=== PATIENT | male | born 1990 | race Caucasian/White ===

== ENCOUNTER → 2019-11-02 13:20 | Outpatient (BNVA) | payer OTHER, SELFPAY | PROVIDERS: Family Provider Family Medicine; PCP Family Medicine; Visit Provider Nurse Practitioner Psychiatric/Mental Health | DX: F33.1 Major depressive disorder, recurrent, moderate (principal); F41.1 Generalized anxiety disorder; G47.30 Sleep apnea, unspecified | CPT/HCPCS: 99214 ==

== ENCOUNTER → 2019-12-18 10:40 | Outpatient (BNVA) | payer OTHER, SELFPAY | PROVIDERS: Family Provider Family Medicine; PCP Family Medicine; Visit Provider Nurse Practitioner Psychiatric/Mental Health | DX: F33.1 Major depressive disorder, recurrent, moderate (principal); F41.1 Generalized anxiety disorder | CPT/HCPCS: 99213 ==

== ENCOUNTER → 2020-02-12 08:21 | Outpatient (BNVA) | payer OTHER, SELFPAY | PROVIDERS: Family Provider Family Medicine; PCP Family Medicine; Visit Provider Nurse Practitioner Psychiatric/Mental Health | DX: F41.1 Generalized anxiety disorder (principal); F32.4 Major depressive disorder, single episode, in partial remission; F43.12 Post-traumatic stress disorder, chronic | CPT/HCPCS: 99212 ==

== ENCOUNTER 2020-03-16 19:35 | Emergency (ER) | payer OTHER, SELFPAY ==
--- NOTE | 2020-03-16 19:37 | XRR_ITS ---
PROCEDURE INFORMATION: Exam: XR Chest, 1 View Exam date and time: 03/16/2020 7:38 PM Age: 29 years old Clinical indication: Dyspnea; Additional info: SOB TECHNIQUE: Imaging protocol: XR of the chest Views: 1 view. COMPARISON: [facility] Chest 2 views 08/22/2018 2:03 PM FINDINGS: Lungs: Lungs are clear bilaterally. Pleural space: No pleural effusion. No pneumothorax. Heart/Mediastinum: The cardiac silhouette and mediastinal contours are unremarkable. Bones/joints: Unremarkable for age. XR/XR chest 1V portable [id number] IMPRESSION: No acute cardiopulmonary process.
[2020-03-16 19:46] VITALS: BP 134/90; PULSE 71; RESP 16; TEMP 36.7; O2SAT 100; BMI 28.7
--- NOTE | 2020-03-16 20:02 | W.ED.SOB ---
HPI - SOB/Dyspnea General: Chief Complaint: Shortness of Breath/Dyspnea Stated Complaint: chest pressure, sob Time Seen by Provider: 03/16/20 19:58 Source: patient Mode of arrival: ambulatory Limitations: no limitations History of Present Illness: HPI Narrative: 29-year-old male states he has had shortness of breath along with chest pain over the last day. Patient states that he went in a biohazard cooler multiple times today and started feeling short of breath and having pain with deep breaths after that. He denies any worsening or improving factors. He denies any fever or cough. MD elicited complaint: shortness of breath Associated symptoms: Reports chest pain; Deny abdominal pain, fever(s), nausea or vomiting Review of Systems Const: Denies: fever(s), chills, body aches or change in appetite Eyes: Denies: blurry vision or eye discomfort ENMT: Denies: throat pain or dental pain Card: Reports: chest pain Resp: Reports: dyspnea GI: Denies: abdominal pain, nausea, vomiting or diarrhea : Denies: dysuria Musc: Denies: neck pain or back pain Skin/Breast: Denies: rash Neuro: Denies: headache(s) Psych: Denies: depression Andrew/Lymph: Denies: easy bruising All/Imm: Denies: urticaria PFSH ED PFSH: Medical History Major depressive disorder in partial remission See subjective information below. Social History Smoking and tobacco status: never smoked Quit status (tobacco): considering quitting Second hand smoke exposure: Yes Physical Exam Const: COMMON NORMALS: no acute distress, patient oriented x3 and healthy appearing HENMT: COMMON NORMALS: normocephalic and atraumatic HEAD & SCALP: normocephalic and atraumatic Eye: COMMON NORMALS: Equal, round and reactive pupils present and EOMs intact bilaterally PUPIL: Yes Equal, round and reactive pupils present Neck/C-Spine: COMMON NORMALS: full ROM and supple Chest: COMMONS NORMALS: normal inspection of the chest and normal palpation of entire chest wall Resp: COMMON NORMALS: normal respiratory effort, No retractions, No use of accessory muscles and clear to auscultation bilaterally AUSCULTATION: clear to auscultation bilaterally Cardio: COMMON NORMALS: regular rate, regular rhythm and No murmurs present (Cardio) RATE: regular rate RHYTHM: regular rhythm GI: COMMON NORMALS: Normal to inspection, nondistended, normoactive bowel sounds present, Soft to palpation, non-tender and no masses PALPATION: Yes Soft to palpation Extremity: COMMON NORMALS: normal to inspection and full ROM Neuro: COMMON NORMALS: patient oriented x3, moves all extremities and no focal motor deficits Psych: COMMON NORMALS: mental status grossly normal, Normal thought process present and cooperative THOUGHT PROCESS: Normal thought process present Skin: COMMON NORMALS: no rashes or lesions noted and no wounds GENERAL SKIN EXAM: no rashes or lesions noted Course Vital Signs: Vital signs: Vital Signs Temperature 98.1 F 03/16/20 19:46 Pulse Rate 87 03/16/20 20:17 Respiratory Rate 20 H 03/16/20 20:14 Blood Pressure 134/90 03/16/20 19:46 Pulse Oximetry 95 03/16/20 20:14 MDM - SOB/Dyspnea MDM Narrative: Medical decision making narrative: Justice presents for shortness of breath that I believe is likely that he is having a reaction to. He feels much improved here after albuterol patient given Decadron as well. Will prescribe albuterol for home. X-ray shows no signs of pneumonia and EKG and troponin are normal. Patient has no signs of pulmonary embolism. He is to follow-up with his primary care doctor in 3 to 5 days and return if worsening. Lab Data: Labs: Lab Results 03/16/20 03/16/20 03/16/20 Range/Units 20:18 20:18 20:18 WBC 9.3 (4.0-10.0) 10^3/ uL RBC 4.43 (4.1-5.3) 10^6/u L Hgb 14.7 (11.7-16.6) g/dL Hct 42.9 (42.0-52.0) % MCV 96.8 H (80-94) fL MCH 33.2 (28.0-34.0) pg MCHC 34.3 (30.0-36.0) g/dL RDW 12.6 (12.1-15.1) % Plt Count 257 (130-400) 10^3/c mm MPV 10.5 H (7.4-10.4) fL Neut % (Auto) 48.1 % Lymph % (Auto) 35.6 % Gibson % (Auto) 9.5 % Eos % (Auto) 6.4 % Baso % (Auto) 0.3 % Neut # (Auto) 4.5 (1.8-7.7) 10^3/u L Lymph # (Auto) 3.3 (0.8-4.8) 10^3/u L Gibson # (Auto) 0.9 (0.2-0.9) 10^3/u L Eos # (Auto) 0.6 (0.0-0.8) 10^3/u L Baso # (Auto) 0.0 (0.0-0.1) 10^3/u L Nucleated RBC % (a uto) 0 % Nucleated RBCs # 0.0 /100WBC Sodium 138 (136-145) mmol/L Potassium 3.5 (3.5-5.1) mmol/L Chloride 103 (98-107) mmol/L Carbon Dioxide 22 (22-29) mmol/L Anion Gap 16.5 (5-19) BUN 19 (6-20) mg/dL Creatinine 1.1 (0.7-1.2) mg/dL GFR Calculation 78.6 L (90-130) mL/min Glucose 152 H (65-115) mg/dL Calculated Osmolal ity 285 (285-295) mOsm/k g Calcium 9.4 (8.5-10.5) mg/dL Total Bilirubin 0.2 (0.15-1.2) mg/dL AST 21 (0-40) U/L ALT 20 (0-41) U/L Alkaline Phosphata se 79 (40-130) IU/L Troponin T Baselin e 6 (0-15) ng/L Total Protein 7.5 (6.6-8.7) g/dL Albumin 4.6 (3.5-5.2) g/dL Globulin 2.9 (1.3-4.6) g/dL Imaging Data^: CXR: Radiologist's impression: [address] [address] XRay Report Signed Patient: Justice Roche Unit #: [id number] : 1990 Age/Sex: 29 / M ADM Date: 03/16/20 Loc: ER Room/Bed: Attending Dr: Ordering Provider/Ordering MD: Brittaney Morris MD Date of Service: 03/16/20 Procedure(s): XR chest 1V portable [id number] Accession Number(s): [id number] Report Number: [id number] PROCEDURE INFORMATION: Exam: XR Chest, 1 View Exam date and time: 03/16/2020 7:38 PM Age: 29 years old Clinical indication: Dyspnea; Additional info: SOB TECHNIQUE: Imaging protocol: XR of the chest Views: 1 view. COMPARISON: [facility] Chest 2 views 08/22/2018 2:03 PM FINDINGS: Lungs: Lungs are clear bilaterally. Pleural space: No pleural effusion. No pneumothorax. Heart/Mediastinum: The cardiac silhouette and mediastinal contours are unremarkable. Bones/joints: Unremarkable for age. XR/XR chest 1V portable [id number] IMPRESSION: No acute cardiopulmonary process. Discharge Plan Discharge Patient Disposition: Home, Self-Care Clinical Impression: Dyspnea Qualifiers: Dyspnea type: shortness of breath Qualified Code(s): R06.02 - Shortness of breath Condition: Stable Prescriptions: New albuterol sulfate 90 mcg/actuation HFA aerosol inhaler 2 inh INHALATION Q6H PRN (Reason: shortness of breath or wheezing) Qty: 8 RF: 0 No Action escitalopram oxalate 10 mg tablet 10 mg PO QDAY Qty: 30 RF: 2 rosuvastatin [Crestor] 20 mg tablet 20 mg PO DAILY RF: 0 trazodone 100 mg tablet 100 mg PO QDAY Qty: 30 RF: 1 Discharge Orders: Discharge Order (Routine); Ordered 03/16/20 Ordered By: Brittaney Morris Referrals: Richar Otero MD [Primary Care Provider] - 1-3 days Discharge Diet: Advance as tolerated Discharge Activity: Resume usual activity Patient Instructions: Dyspnea (ED) Coding Level of Care Code ED Supplemental Nurse for Chg Fwd Exam Comprehensive
[2020-03-16 20:14] VITALS: PULSE 87; RESP 20; O2SAT 95
[2020-03-16] MEDS: ipratropium-albuterol 3 mL Neb INHALATION (20:14)
[2020-03-16 20:17] VITALS: PULSE 87
[2020-03-16 20:21] LABS: Basophils % 0.3 %; Eosinophils # 0.6 10^3/uL (0.0-0.8); Eosinophils % 6.4 %; Hematocrit 42.9 % (42.0-52.0); Hemoglobin 14.7 g/dL (11.7-16.6); Lymphocytes # 3.3 10^3/uL (0.8-4.8); Lymphocytes % 35.6 %; Mean Corpuscular HGB Conc 34.3 g/dL (30.0-36.0); Mean Corpuscular Hemoglobin 33.2 pg (28.0-34.0); Mean Corpuscular Volume 96.8 fL (80-94); Mean Platelet Volume 10.5 fL (7.4-10.4); Monocytes # 0.9 10^3/uL (0.2-0.9); Monocytes % 9.5 %; Neutrophils # 4.5 10^3/uL (1.8-7.7); Neutrophils % 48.1 %; Nucleated Red Blood Cells % 0 %; Platelet Count 257 10^3/cmm (130-400); Red Blood Count 4.43 10^6/uL (4.1-5.3); Red Cell Distribution Width 12.6 % (12.1-15.1); White Blood Count 9.3 10^3/uL (4.0-10.0)
[2020-03-16 20:36] LABS: Alanine Aminotransferase 20 U/L (0-41); Albumin Level 4.6 g/dL (3.5-5.2); Alkaline Phosphatase 79 IU/L (40-130); Anion Gap 16.5 (5-19); Aspartate Amino Transferase 21 U/L (0-40); Blood Urea Nitrogen 19 mg/dL (6-20); Calcium 9.4 mg/dL (8.5-10.5); Carbon Dioxide 22 mmol/L (22-29); Chloride 103 mmol/L (98-107); Globulin 2.9 g/dL (1.3-4.6); Glomerular Filtration Rate 78.6 mL/min (90-130); Glucose 152 mg/dL (65-115); Osmolality Calculated 285 mOsm/kg (285-295); Potassium 3.5 mmol/L (3.5-5.1); Sodium 138 mmol/L (136-145); Total Bilirubin 0.2 mg/dL (0.15-1.2); Total Protein 7.5 g/dL (6.6-8.7)
[2020-03-16 20:37] LABS: Troponin(5th) Baseline 6 ng/L (0-15)
[2020-03-16] MEDS: dexamethasone 10 mg/mL INJ IVP (20:47)
[2020-03-16 21:36] VITALS: BP 117/70; PULSE 89; RESP 18; O2SAT 95
[2020-03-16 21:57] VITALS: BP 111/63; PULSE 97; RESP 19; O2SAT 94
== END 2020-03-16 21:57 | disposition home or self-care (01) ==
PROVIDERS: Emergency Provider Emergency Medicine; PCP Family Medicine
DX: R06.02 Shortness of breath (principal)
CPT/HCPCS: 12345; 71045; 80053; 84484; 85025; 94640; 96374; 99281; 99284; J1100; J7611

== ENCOUNTER → 2020-05-13 08:42 | Outpatient (BNVA) | payer OTHER, SELFPAY | PROVIDERS: PCP Family Medicine; Visit Provider Nurse Practitioner Psychiatric/Mental Health | DX: F32.4 Major depressive disorder, single episode, in partial remission (principal); F41.1 Generalized anxiety disorder | CPT/HCPCS: 99212 ==

== ENCOUNTER → 2020-07-01 08:16 | Outpatient (BNVA) | payer OTHER, SELFPAY | PROVIDERS: PCP Family Medicine; Visit Provider Nurse Practitioner Psychiatric/Mental Health | DX: F32.4 Major depressive disorder, single episode, in partial remission (principal); F41.1 Generalized anxiety disorder | CPT/HCPCS: 99212 ==

== ENCOUNTER → 2020-11-04 10:11 | Outpatient (BNVA) | payer OTHER, SELFPAY | PROVIDERS: PCP Family Medicine; Visit Provider Nurse Practitioner Psychiatric/Mental Health | DX: F32.4 Major depressive disorder, single episode, in partial remission (principal); F41.1 Generalized anxiety disorder | CPT/HCPCS: 99213 ==

== ENCOUNTER 2021-01-16 07:32 | Emergency (ER) | payer OTHER, SELFPAY ==
[2021-01-16 07:43] VITALS: BP 132/94; PULSE 71; RESP 16; TEMP 36.6; O2SAT 96; BMI 29.9
--- NOTE | 2021-01-16 08:09 | W.ED.EYEPROB ---
HPI - Eye Problem General: Chief complaint: Eye Problems Stated complaint: Lt eye irratated Time Seen by Provider: 01/16/21 07:37 History of Present Illness: HPI Narrative: 30-year-old male presents emergency room complaining of left eye discomfort and watering it began when he woke up this morning he usually does wear contacts he wears the overnight he remove the contact and still is uncomfortable. It is watering excessively is moderately red. Is not had any purulent drainage no foreign bodies that he knows of or has thought he might have gotten. chief complaint: eye pain and eye redness Onset (ago): hour(s) Onset description: sudden Duration: constant Location: left eye Eye Symptoms: burning, redness and foreign body sensation Place: home Mechanism: none Severity: moderate If Pain, Quality: sharp Associated symptoms: Denies cough, fever(s), headache(s), nausea, neck pain, numbness, rhinorrhea, short of breath, vomiting or weakness Treatments Prior to Arrival: none Review of Systems Const: Denies: fever(s) ENMT: Denies: throat pain, ear or mastoid pain, nasal discharge or nasal congestion Card: Denies: chest pain, edema, dyspnea on exertion or orthopnea Resp: Denies: dyspnea, productive cough or non-productive cough GI: Denies: nausea or vomiting : Denies: flank pain, dysuria, urinary frequency or urinary urgency Musc: Denies: neck pain Skin/Breast: Denies: rash or pruritus Neuro: Denies: headache(s) PFSH ED PFSH: Medical History Major depressive disorder in partial remission Social History Smoking and tobacco status: current every day smoker smokeless tobacco Smokeless tobacco user: chewing tobacco Smokeless tobacco details: 0.5 can per day Quit status (tobacco): considering quitting Second hand smoke exposure: Yes Physical Exam Const: COMMON NORMALS: no acute distress GENERAL APPEARANCE: cooperative and comfortable ORIENTATION/CONSCIOUSNESS: Yes awake, Yes oriented to person, Yes oriented to place and Yes oriented to time HENMT: COMMON NORMALS: normocephalic, atraumatic and hearing grossly normal bilaterally HEAD & SCALP: normocephalic and atraumatic Eye: OTHER: Left eye anesthetized with tetracaine good relief of discomfort. Eyelids everted no foreign bodies noted fluorescein staining of the cornea under black light no evidence of corneal abrasions some mild increased uptake at the edges of the cornea and the sclera. Neck/C-Spine: COMMON NORMALS: full ROM, no lymphadenopathy, supple and no JVD Lymph: LYMPHATIC: no lymphadenopathy noted and no lymphedema noted Resp: COMMON NORMALS: normal respiratory effort, No retractions, No use of accessory muscles and clear to auscultation bilaterally AUSCULTATION: clear to auscultation bilaterally Cardio: COMMON NORMALS: no JVD, regular rate, regular rhythm and No murmurs present (Cardio) RATE: regular rate RHYTHM: regular rhythm GI: COMMON NORMALS: Soft to palpation and No hepatosplenomegaly present AUSCULTATION: Yes normoactive bowel sounds PALPATION: Yes Soft to palpation, No Tenderness to palpation present (GI), No Guarding due to palpation present (GI) and Yes No hepatosplenomegaly present Extremity: COMMON NORMALS: normal to inspection, capillary refill normal, no clubbing, cyanosis or edema, no calf tenderness and no pedal edema Neuro: SENSORIUM/ORIENTATION: Yes oriented to person, Yes oriented to place and Yes oriented to time Skin: COMMON NORMALS: no rashes or lesions noted GENERAL SKIN EXAM: no rashes or lesions noted Course Vital Signs: Vital signs: Vital Signs Temperature 97.8 F 01/16/21 07:43 Pulse Rate 70 01/16/21 10:21 Respiratory Rate 18 01/16/21 10:21 Blood Pressure 131/83 01/16/21 10:21 Pulse Oximetry 96 01/16/21 10:21 MDM - Eye Problem MDM Narrative: Medical decision making narrative: Suspect he had a mild corneal abrasion is already begun to heal overnight he woke up with his contacts in. 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 Discharge Plan Discharge Clinical Impression: Corneal abrasion Condition: Stable Prescriptions: New TobraDex 0.3-0.1 % drops,suspension 1 drp ophthalmic (eye) 6XD 5 Days Qty: 10 RF: 0 No Action buspirone 10 mg tablet 10 mg PO BID Qty: 60 RF: 2 escitalopram oxalate 20 mg tablet 20 mg PO DAILY Qty: 30 RF: 2 rosuvastatin [Crestor] 20 mg tablet 20 mg PO DAILY RF: 0 lisinopril 10 mg tablet 10 mg PO DAILY RF: 0 erythromycin 5 mg/gram (0.5 %) ointment 0.5 inch ophthalmic (eye) QID 7 Days Qty: 3.5 RF: 0 albuterol sulfate 90 mcg/actuation HFA aerosol inhaler 2 inh INHALATION Q6H PRN (Reason: shortness of breath or wheezing) Qty: 8 RF: 0 Discharge Orders: Discharge ED (Routine); Ordered 01/16/21 Ordered By: Shane Franco Referrals: Richar Otero MD [Primary Care Provider] - Patient Instructions: Opioid Safety Activity Restrictions/Additional Instructions: If not improving follow-up with your eye doctor. Coding Level of Care Code ED [place] Converter Operator for Chg Fwd Exam Comprehensive
[2021-01-16] MEDS: cyclopentolate 1% Op Soln 2 mL Btl 1 DROP EYE-LEFT (10:16)
[2021-01-16 10:21] VITALS: BP 131/83; PULSE 70; RESP 18; O2SAT 96
== END 2021-01-16 10:21 ==
PROVIDERS: Emergency Provider Family Medicine; PCP Family Medicine
DX: S05.02XA Injury of conjunctiva and corneal abrasion without foreign body, left eye, initial encounter (principal); X58.XXXA Exposure to other specified factors, initial encounter; F17.220 Nicotine dependence, chewing tobacco, uncomplicated
CPT/HCPCS: 99282

== ENCOUNTER → 2021-01-27 08:25 | Outpatient (BNVA) | payer OTHER, SELFPAY | PROVIDERS: PCP Family Medicine; Visit Provider Nurse Practitioner Psychiatric/Mental Health | DX: F32.4 Major depressive disorder, single episode, in partial remission (principal); F41.1 Generalized anxiety disorder | CPT/HCPCS: 99213 ==

== ENCOUNTER 2021-02-14 10:56 | Observation (INO) | payer OTHER, SELFPAY ==
[2021-02-14] VITALS (11 sets, daily range): BP systolic 98–155; BP diastolic 63–95; PULSE 96–130; RESP 18–26; TEMP 36.7–37.6; O2SAT 90–96; BMI 30.6
--- NOTE | 2021-02-14 11:10 | XRR_ITS ---
PROCEDURE INFORMATION: Exam: XR Chest Exam date and time: 02/14/2021 11:46 AM Age: 30 years old Clinical indication: Shortness of breath; Additional info: Reduced breath sounds TECHNIQUE: Imaging protocol: XR of the chest. Views: 1 view. COMPARISON: [facility] XR chest 1V portable [id number] 03/16/2020 8:13 PM FINDINGS: Lungs: Unremarkable. No consolidation. Pleural spaces: Unremarkable. No pleural effusion. No pneumothorax. Heart/Mediastinum: Unremarkable. No cardiomegaly. Bones/joints: Unremarkable. XR/XR chest 1V portable [id number] IMPRESSION: No acute findings.
--- NOTE | 2021-02-14 11:12 | ECG_ITS ---
[facility] Test Date: 2021-02-14 Pat Name: Justice Roche Department: Room: Gender: Male Paraoptometric: : 1990 Requested By: Raffi Polo Order Number: [id number] Patterson MD: Matilde Segal M.D. Measurements Intervals [place] Rate: 111 P: 25 MI: 128 QRS: 13 QRSD: 91 T: 57 QT: 299 QTc: 407 Interpretive Statements SINUS TACHYCARDIA NONSPECIFIC T-WAVE ABNORMALITY ABNORMAL RHYTHM ECG Compared to ECG 09/08/2018 10:19:02 T-wave abnormality now present Sinus bradycardia no longer present Sinus arrhythmia no longer present Electronically Signed On 02-16-2021 12:12:48 CDT by Matilde Segal M.D. [id number]
--- NOTE | 2021-02-14 11:17 | W.ED.WEAKNES ---
HPI - Weakness General: Chief complaint: Weakness Stated complaint: SHAKING Time Seen by Provider: 02/14/21 11:01 History of Present Illness: HPI Narrative: Patient is a 30-year-old male with past medical history anxiety and depression. He comes to the ER complaining that he cannot stop shaking. He is shaking his extremities and entire body. He says he is feeling nauseous and just vomited prior to being seen. He says he does have anxiety. 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 He says his knees began to ache and then he started to feel slightly shaky and then his back began to ache and head began to ache. He says he has these episodes sporadically but has had 2 in the last month and they last a couple hours until he is able to take an ibuprofen and they go way. Complaint: generalized weakness Onset (ago): minute(s) (30) Duration: constant Location: generalized Severity: moderate Exacerbating factors: none Associated symptoms: Reports nausea and vomiting; Denies chest pain or headache(s) Review of Systems General: Reports: 10 or more systems reviewed and unremarkable except in HPI and below Const: Denies: fatigue Eyes: Denies: change in vision, blurry vision or eye redness ENMT: Denies: throat pain, swelling of lips/tongue, ear or mastoid pain or nasal congestion Card: Denies: chest pain Resp: Denies: dyspnea, productive cough or non-productive cough GI: Reports: nausea and vomiting : Denies: flank pain, urinary frequency or urinary urgency Musc: Denies: neck pain, back pain, extremity pain, joint pain, joint redness, limited range of motion or muscle weakness Skin/Breast: Denies: rash, pruritus, erythema, skin pain or skin tenderness Neuro: Denies: headache(s) Psych: Denies: anxiety or depression Endo: Denies: polyuria All/Imm: Denies: urticaria, throat swelling or tongue swelling 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 Surgical History No pertinent past surgical history Family History Other CAD (coronary artery disease) Diabetes Hypertension Social History Smoking and tobacco status: current every day smoker smokeless tobacco Smokeless tobacco user: chewing tobacco Smokeless tobacco details: 0.5 can per day Quit status (tobacco): considering quitting Second hand smoke exposure: Yes Physical Exam Const: COMMON NORMALS: no acute distress, average body habitus, patient oriented x3, no limitations, alert and well nourished GENERAL APPEARANCE: cooperative and anxious ORIENTATION/CONSCIOUSNESS: Yes awake, Yes oriented to person, Yes oriented to place and Yes oriented to time OTHER: shaking hands and arms HENMT: COMMON NORMALS: normocephalic, external ears normal and Normal external nose present HEAD & SCALP: normal to inspection and normocephalic NOSE: Normal external nose present EXTERNAL EAR: Yes external ears normal MOUTH: Normal oral and palatal mucosa present THROAT: posterior oropharynx normal Eye: COMMON NORMALS: Equal, round and reactive pupils present and EOMs intact bilaterally GENERAL EYE: appearance normal, both eyes and all related structures PUPIL: Yes Equal, round and reactive pupils present Neck/C-Spine: COMMON NORMALS: full ROM, no lymphadenopathy, no meningeal signs and no JVD GENERAL: Yes normal visual inspection Lymph: LYMPHATIC: no lymphadenopathy noted Chest: COMMONS NORMALS: normal inspection of the chest and normal palpation of entire chest wall Resp: COMMON NORMALS: normal respiratory effort, No retractions, No use of accessory muscles, clear to auscultation bilaterally and percussion normal EFFORT & INSPECTION: Yes able to speak in complete sentences AUSCULTATION: clear to auscultation bilaterally PERCUSSION: percussion normal Cardio: COMMON NORMALS: no JVD, regular rate, regular rhythm, S1 normal heart sound present, S2 normal heart sound present and Peripheral pulses 2+ throughout RATE: regular rate RHYTHM: regular rhythm HEART SOUNDS: S1 normal heart sound present and S2 normal heart sound present PERIPHERAL PULSES: Peripheral pulses 2+ throughout GI: COMMON NORMALS: Normal to inspection, nondistended, normoactive bowel sounds present, Soft to palpation, non-tender and no masses INSPECTION: Yes normal to inspection PALPATION: Yes Soft to palpation : COMMON NORMALS: Yes no CVA tenderness BLADDER/KIDNEY EXAM: Yes no CVA tenderness Back/Pelvis: COMMON NORMALS: no CVA tenderness, thoracic and lumbar spine normal to inspection, no thoracic nor lumbar tenderness and thoraco-lumbar ROM normal Extremity: COMMON NORMALS: normal to inspection, full ROM, capillary refill normal, no joint enlargement and no pedal edema GENERAL: Yes normal exam except as noted Neuro: COMMON NORMALS: patient oriented x3, CN's II-XII intact bilaterally, moves all extremities, no focal motor deficits, no sensory deficits noted and gait normal SENSORIUM/ORIENTATION: Yes alert, Yes oriented to person, Yes oriented to place and Yes oriented to time MENINGEAL SIGNS: Yes no meningeal signs Psych: COMMON NORMALS: mental status grossly normal, cooperative, normal affect and speech normal SPEECH: Yes normal speech MOOD & AFFECT: Yes anxious Skin: COMMON NORMALS: no rashes or lesions noted GENERAL SKIN EXAM: no rashes or lesions noted Procedures Lumbar Puncture Time Out Performed: Yes Patient Position: right lateral decubitus Skin Prep: Povidone-Iodine 1% Local Anesthetic: lidocaine 1% Amount of anesthesia used (mL): 5 Spinal Needle Gauge: 24G Interspace Used: L3-L4 Fluid Initially Obtained: clear Complications: none Additional Comments: Clear tap. Tolerated well. Course Vital Signs: Vital signs: Vital Signs Temperature 99.6 F 02/14/21 10:59 Pulse Rate 130 H 02/14/21 15:10 Respiratory Rate 18 02/14/21 15:10 Blood Pressure 118/81 02/14/21 15:10 Pulse Oximetry 95 02/14/21 15:10 MDM - Weakness MDM Narrative: Medical decision making narrative: The patient continued to complain of headache, neck pain and is tachycardic as well as having elevated lactic acid. He also has a history of anxiety so it is difficult to tell if these are symptoms of his anxiety because he was also shaking severely or possibly a meningitis. I initially told him that these were possibly signs and symptoms of meningitis and that we should do a lumbar puncture. I explained the risks and benefits to him and he declined the test at that time. I went ahead and empirically treated with ceftriaxone 2 g IV and discussed with the hospitalist Dr. Thayer who again recommended the lumbar puncture to him and he accepted the test. I discussed risks of pain, infection, nerve damage, bleeding, CSF leak, chronic low back pain, chronic nerve damage pain. He understood and accepts the risks of this test and proceeded to go forward with the test and signed consent papers. The lumbar puncture itself was uncomplicated and clear fluid resulted. He will be admitted to [facility] for further monitoring. Lab Data: Labs: Lab Results 02/14/21 02/14/21 02/14/21 Range/Units 11:41 11:41 11:41 WBC 9.2 (4.0-10.0) 10^3/ uL RBC 4.64 (4.1-5.3) 10^6/u L Hgb 15.4 (11.7-16.6) g/dL Hct 46.0 (42.0-52.0) % MCV 99.1 H (80-94) fL MCH 33.2 (28.0-34.0) pg MCHC 33.5 (30.0-36.0) g/dL RDW 12.6 (12.1-15.1) % Plt Count 210 (130-400) 10^3/c mm MPV 10.9 H (7.4-10.4) fL Neut % (Auto) 84.2 % Lymph % (Auto) 12.3 % Ellsworth % (Auto) 1.1 % Eos % (Auto) 1.8 % Baso % (Auto) 0.3 % Neut # (Auto) 7.74 H (1.8-7.7) 10^3/u L Lymph # (Auto) 1.1 (0.8-4.8) 10^3/u L Ellsworth # (Auto) 0.1 L (0.2-0.9) 10^3/u L Eos # (Auto) 0.2 (0.0-0.8) 10^3/u L Baso # (Auto) 0.0 (0.0-0.1) 10^3/u L Nucleated RBC % (a uto) 0 % Nucleated RBCs # 0.0 /100WBC Sodium 139 (136-145) mmol/L Potassium 4.7 (3.5-5.1) mmol/L Chloride 104 (98-107) mmol/L Carbon Dioxide 23 (22-29) mmol/L Anion Gap 16.7 (5-19) BUN 20 (6-20) mg/dL Creatinine 1.1 (0.7-1.2) mg/dL GFR Calculation 78.1 L (90-130) mL/min Glucose 74 (65-115) mg/dL Calculated Osmolal ity 289 (285-295) mOsm/k g Lactic Acid 3.4 H (0.5-2.2) mmol/L Calcium 8.9 (8.5-10.5) mg/dL Total Bilirubin 0.4 (0.15-1.2) mg/dL AST 23 (0-40) U/L ALT 22 (0-41) U/L Alkaline Phosphata se 93 (40-130) IU/L C-Reactive Protein 1.5 (0.0-4.9) mg/L Total Protein 7.9 (6.6-8.7) g/dL Albumin 4.7 (3.5-5.2) g/dL Globulin 3.2 (1.3-4.6) g/dL TSH (0.27-4.20) uIU/ mL Urine Color (Yellow) Urine Appearance (CLEAR) Urine pH (5-7) Ur Specific Gravit y (1.005-1.030) Urine Protein (Negative) Urine Glucose (UA) (Normal) Urine Ketones (Negative) Urine Blood (Negative) Urine Nitrate (Negative) Urine Bilirubin (Negative) Urine Urobilinogen (Negative) mg/dL Ur Leukocyte Marga ase (Negative) Urine Opiates Scre en (Negative) ng/mL Ur Barbiturates Sc reen (Negative) ng/mL Ur Phencyclidine S crn (Negative) ng/mL Ur Amphetamines Sc reen (Negative) ng/mL U Benzodiazepines Scrn (Negative) ng/mL Urine Cocaine Scre en (Negative) ng/mL U Marijuana (THC) Screen (Negative) ng/mL SARS-CoV-2 Ag (Rap id) (Negative) 02/14/21 02/14/21 02/14/21 Range/Units 11:41 11:41 11:41 WBC (4.0-10.0) 10^3/ uL RBC (4.1-5.3) 10^6/u L Hgb (11.7-16.6) g/dL Hct (42.0-52.0) % MCV (80-94) fL MCH (28.0-34.0) pg MCHC (30.0-36.0) g/dL RDW (12.1-15.1) % Plt Count (130-400) 10^3/c mm MPV (7.4-10.4) fL Neut % (Auto) % Lymph % (Auto) % Ellsworth % (Auto) % Eos % (Auto) % Baso % (Auto) % Neut # (Auto) (1.8-7.7) 10^3/u L Lymph # (Auto) (0.8-4.8) 10^3/u L Ellsworth # (Auto) (0.2-0.9) 10^3/u L Eos # (Auto) (0.0-0.8) 10^3/u L Baso # (Auto) (0.0-0.1) 10^3/u L Nucleated RBC % (a uto) % Nucleated RBCs # /100WBC Sodium (136-145) mmol/L Potassium (3.5-5.1) mmol/L Chloride (98-107) mmol/L Carbon Dioxide (22-29) mmol/L Anion Gap (5-19) BUN (6-20) mg/dL Creatinine (0.7-1.2) mg/dL GFR Calculation (90-130) mL/min Glucose (65-115) mg/dL Calculated Osmolal ity (285-295) mOsm/k g Lactic Acid (0.5-2.2) mmol/L Calcium (8.5-10.5) mg/dL Total Bilirubin (0.15-1.2) mg/dL AST (0-40) U/L ALT (0-41) U/L Alkaline Phosphata se (40-130) IU/L C-Reactive Protein (0.0-4.9) mg/L Total Protein (6.6-8.7) g/dL Albumin (3.5-5.2) g/dL Globulin (1.3-4.6) g/dL TSH 1.16 (0.27-4.20) uIU/ mL Urine Color Yellow (Yellow) Urine Appearance Clear (CLEAR) Urine pH 5 (5-7) Ur Specific Gravit y 1.015 (1.005-1.030) Urine Protein Neg (Negative) Urine Glucose (UA) Norm (Normal) Urine Ketones Negative (Negative) Urine Blood Neg (Negative) Urine Nitrate Negative (Negative) Urine Bilirubin Neg (Negative) Urine Urobilinogen 1 H (Negative) mg/dL Ur Leukocyte Marga ase Negative (Negative) Urine Opiates Scre en Negative (Negative) ng/mL Ur Barbiturates Sc reen Negative (Negative) ng/mL Ur Phencyclidine S crn Negative (Negative) ng/mL Ur Amphetamines Sc reen Negative (Negative) ng/mL U Benzodiazepines Scrn Negative (Negative) ng/mL Urine Cocaine Scre en Negative (Negative) ng/mL U Marijuana (THC) Screen Negative (Negative) ng/mL SARS-CoV-2 Ag (Rap id) (Negative) 02/14/21 Range/Units 14:30 WBC (4.0-10.0) 10^3/ uL RBC (4.1-5.3) 10^6/u L Hgb (11.7-16.6) g/dL Hct (42.0-52.0) % MCV (80-94) fL MCH (28.0-34.0) pg MCHC (30.0-36.0) g/dL RDW (12.1-15.1) % Plt Count (130-400) 10^3/c mm MPV (7.4-10.4) fL Neut % (Auto) % Lymph % (Auto) % Ellsworth % (Auto) % Eos % (Auto) % Baso % (Auto) % Neut # (Auto) (1.8-7.7) 10^3/u L Lymph # (Auto) (0.8-4.8) 10^3/u L Ellsworth # (Auto) (0.2-0.9) 10^3/u L Eos # (Auto) (0.0-0.8) 10^3/u L Baso # (Auto) (0.0-0.1) 10^3/u L Nucleated RBC % (a uto) % Nucleated RBCs # /100WBC Sodium (136-145) mmol/L Potassium (3.5-5.1) mmol/L Chloride (98-107) mmol/L Carbon Dioxide (22-29) mmol/L Anion Gap (5-19) BUN (6-20) mg/dL Creatinine (0.7-1.2) mg/dL GFR Calculation (90-130) mL/min Glucose (65-115) mg/dL Calculated Osmolal ity (285-295) mOsm/k g Lactic Acid (0.5-2.2) mmol/L Calcium (8.5-10.5) mg/dL Total Bilirubin (0.15-1.2) mg/dL AST (0-40) U/L ALT (0-41) U/L Alkaline Phosphata se (40-130) IU/L C-Reactive Protein (0.0-4.9) mg/L Total Protein (6.6-8.7) g/dL Albumin (3.5-5.2) g/dL Globulin (1.3-4.6) g/dL TSH (0.27-4.20) uIU/ mL Urine Color (Yellow) Urine Appearance (CLEAR) Urine pH (5-7) Ur Specific Gravit y (1.005-1.030) Urine Protein (Negative) Urine Glucose (UA) (Normal) Urine Ketones (Negative) Urine Blood (Negative) Urine Nitrate (Negative) Urine Bilirubin (Negative) Urine Urobilinogen (Negative) mg/dL Ur Leukocyte Marga ase (Negative) Urine Opiates Scre en (Negative) ng/mL Ur Barbiturates Sc reen (Negative) ng/mL Ur Phencyclidine S crn (Negative) ng/mL Ur Amphetamines Sc reen (Negative) ng/mL U Benzodiazepines Scrn (Negative) ng/mL Urine Cocaine Scre en (Negative) ng/mL U Marijuana (THC) Screen (Negative) ng/mL SARS-CoV-2 Ag (Rap id) Negative (Negative) Discharge Plan Discharge Patient Disposition: Admitted As Inpatient Admit Provider: Juan Luis Thayer Clinical Impression: Meningitis, Generalized anxiety disorder Condition: Stable Coding Level of Care Code ED Women Specialist for [facility] Fwd Exam Comprehensive
[2021-02-14] MEDS: ondansetron 2 mg/ML SDV 2 mL 4 MG IVP ×3 (11:37→15:02)
[2021-02-14] MEDS: sodium chloride 0.9% 1,000 ML 999 ML IV (11:37)
[2021-02-14] MEDS: LORazepam 2 mg/mL INJ 1 mL 1 MG IVP ×2 (11:38→13:35)
[2021-02-14] MEDS: ketorolac 30 mg/mL INJ 15 MG IVP (11:47)
[2021-02-14 11:57] LABS: Basophils % 0.3 %; Eosinophils # 0.2 10^3/uL (0.0-0.8); Eosinophils % 1.8 %; Hemoglobin 15.4 g/dL (11.7-16.6); Lymphocytes # 1.1 10^3/uL (0.8-4.8); Lymphocytes % 12.3 %; Mean Corpuscular HGB Conc 33.5 g/dL (30.0-36.0); Mean Corpuscular Hemoglobin 33.2 pg (28.0-34.0); Mean Corpuscular Volume 99.1 fL (80-94); Mean Platelet Volume 10.9 fL (7.4-10.4); Monocytes # 0.1 10^3/uL (0.2-0.9); Monocytes % 1.1 %; Neutrophils # 7.74 10^3/uL (1.8-7.7); Neutrophils % 84.2 %; Nucleated Red Blood Cells % 0 %; Platelet Count 210 10^3/cmm (130-400); Red Blood Count 4.64 10^6/uL (4.1-5.3); Red Cell Distribution Width 12.6 % (12.1-15.1); White Blood Count 9.2 10^3/uL (4.0-10.0)
[2021-02-14 12:06] LABS: Add Urine Microscopic? NO; Charge for UA Resulting for Rev
[2021-02-14 12:08] LABS: Alanine Aminotransferase 22 U/L (0-41); Albumin Level 4.7 g/dL (3.5-5.2); Alkaline Phosphatase 93 IU/L (40-130); Anion Gap 16.7 (5-19); Aspartate Amino Transferase 23 U/L (0-40); Blood Urea Nitrogen 20 mg/dL (6-20); C Reactive Protein 1.5 mg/L (0.0-4.9); Calcium 8.9 mg/dL (8.5-10.5); Carbon Dioxide 23 mmol/L (22-29); Chloride 104 mmol/L (98-107); Globulin 3.2 g/dL (1.3-4.6); Glomerular Filtration Rate 78.1 mL/min (90-130); Glucose 74 mg/dL (65-115); Osmolality Calculated 289 mOsm/kg (285-295); Potassium 4.7 mmol/L (3.5-5.1); Sodium 139 mmol/L (136-145); Total Bilirubin 0.4 mg/dL (0.15-1.2); Total Protein 7.9 g/dL (6.6-8.7)
[2021-02-14 12:11] LABS: Lactic Sepsis W/Reflex 3.4 mmol/L (0.5-2.2)
[2021-02-14 12:12] LABS: Bilirubin Urine Neg (Negative); Blood Urine Neg (Negative); Glucose Urine UA Norm (Normal); Ketones Urine Negative (Negative); Leukocyte Esterase Urine Negative (Negative); Nitrate Urine Negative (Negative); Protein Urine Neg (Negative); Specific Gravity, Urine 1.015 (1.005-1.030); Urine Appearance Clear (CLEAR); Urine Color Yellow (Yellow); Urobilinogen Urine 1 mg/dL (Negative); pH Urine 5 (5-7)
--- NOTE | 2021-02-14 13:30 | CTR_ITS ---
PROCEDURE INFORMATION: Exam: CT Cervical Spine Without Contrast Exam date and time: 02/14/2021 1:50 PM Age: 30 years old Clinical indication: Neck pain TECHNIQUE: Imaging protocol: Computed tomography images of the cervical spine without contrast. Radiation optimization: All CT scans at this facility use at least one of these dose optimization techniques: automated exposure control; mA and/or kV adjustment per patient size (includes targeted exams where dose is matched to clinical indication); or iterative reconstruction. COMPARISON: CT Cervical Spine wo* [id number] 08/19/2014 3:57 AM RADIATION DOSE METRICS: Total DLP (mGy-cm): 864.41 FINDINGS: Bones/joints: There is mild reversal of the normal cervical lordosis. There is no acute fracture. Discs/Spinal canal/Neural foramina: No significant spinal canal stenosis or neural foraminal narrowing. Lungs: Lung apices are normal. Soft tissues: Unremarkable. CT/CT cervical spin wo con* [id number] IMPRESSION: No acute abnormality. Radiation Dose CTDIVOL = (mGy): DLP = 864.41 (mGy-cm)
--- NOTE | 2021-02-14 13:30 | CTR_ITS ---
PROCEDURE INFORMATION: Exam: CT Head Without Contrast Exam date and time: 02/14/2021 1:50 PM Age: 30 years old Clinical indication: Pain; Headache TECHNIQUE: Imaging protocol: Computed tomography of the head without contrast. Radiation optimization: All CT scans at this facility use at least one of these dose optimization techniques: automated exposure control; mA and/or kV adjustment per patient size (includes targeted exams where dose is matched to clinical indication); or iterative reconstruction. COMPARISON: No relevant prior studies available. RADIATION DOSE METRICS: Total DLP (mGy-cm): 943.23 FINDINGS: Brain: A chronic left MCA territory infarct is present. There is no acute intracranial hemorrhage, cerebral edema, or midline shift. Cerebral ventricles: No hydrocephalus. Bones/joints: No acute fracture. Paranasal sinuses: Nodular mucosal thickening is present within the maxillary and sphenoid sinuses. There are no air-fluid levels. Mastoid air cells: Visualized mastoid air cells are well aerated. Orbital cavity: Unremarkable as visualized. Soft tissues: Unremarkable. CT/CT head wo con* [id number] IMPRESSION: 1. No acute abnormality. 2. Chronic findings as discussed above. Radiation Dose CTDIVOL = (mGy): DLP = 943.23 (mGy-cm)
[2021-02-14 13:36] LABS: Amphetamines Screen Urine Negative (Negative); Barbiturates Screen Urine Negative (Negative); Benzodiazepines Screen Urine Negative (Negative); Cocaine Screen Urine Negative (Negative); Opiate Screen Urine Negative (Negative); PCP Screen Urine Negative (Negative); THC Screen Urine Negative (Negative)
[2021-02-14 13:37] LABS: Reflex Lactate Order REFLEX LACTIC ORDERD
[2021-02-14] MEDS: cefTRIAXone 2,000 MG in sodium chloride 0.9% (plus) 50 ML 100 MG IV (13:42)
[2021-02-14 13:54] LABS: Thyroid Stimulating Hormone 1.16 uIU/mL (0.27-4.20)
[2021-02-14 14:58] LABS: SARS Covid-2 Antigen Negative (Negative)
--- NOTE | 2021-02-14 14:58 | PM.HP ---
Providers/Chief Complaint Primary Care Provider: Richar Otero MD Chief Complaint: SHAKING, N/V History of Present Illness Justice Roche is a 30 year old male lebers optic atrophy, history of congenital stroke with focal lesion in the left insular cortex, he has a decrease in the number of left MCA artery cortical branches suggesting branch occlusion, remote, migraines, seizures, depression, anxiety who presents to [facility] due to a 1 day history of headaches, nausea, vomiting, neck pain, neck stiffness. Patient tells me that he woke up this morning with a headache, some nausea, he went to work at [facility] [facility] [employer], and started develops significant neck pain and neck stiffness, pain with range of motion, currently is feeling unwell, he thinks he might be having a fever, no lightheadedness, dizziness, his son is sick, he is not sure from what, all his immunizations are up-to-date, he is meningitis vaccination is up-to-date, denies any cough, shortness of breath, no abdominal pain, no diarrhea, denies drinking alcohol, reports smoking, no drug use, no chest pain, no palpitations. Patient's lab work was relatively unremarkable, but he has tachycardia, low-grade temperature, neck pain, neck stiffness, there was concerns for meningitis. However patient was refusing a lumbar puncture, hospitalist team was called for admission. I advised the ER physician that patient needs to have a lumbar puncture, I went down and I spoke with the patient, advised the risk and benefits of a lumbar puncture, he functioning, all questions answered, agreed to proceed, patient had a lumbar puncture, he is received Rocephin so far. I will start him on vancomycin, Decadron, until the CSF studies come back. Review of Systems Const: Reports: fever(s), fatigue and malaise; Denies: chills Eyes: Reports: blurry vision; Denies: change in vision ENMT: Denies: nasal congestion Card: Denies: chest pain or palpitations Resp: Denies: dyspnea, productive cough, non-productive cough or wheezing GI: Denies: abdominal pain, nausea, vomiting, hematemesis, diarrhea, constipation, hematochezia or melena : Denies: flank pain, difficulty urinating, dysuria or urinary frequency Musc: Reports: neck pain; Denies: back pain Skin/Breast: Denies: rash Neuro: Reports: headache(s); Denies: dizziness or vertigo Psych: Denies: anxiety or depression Endo: Denies: polyuria or polydipsia Medications/Allergies Home Medications Medication Instructions Recorded Confirmed Last Taken Type rosuvastatin 20 mg tablet 20 mg PO DAILY tab 10/24/19 02/14/21 02/14/21 History albuterol sulfate 2 inh INHALATION Q6H PRN #8 gm 03/16/20 02/14/21 Unknown Rx lisinopril 10 mg tablet 10 mg PO DAILY 10/31/20 02/14/21 02/14/21 History buspirone 10 mg tablet 10 mg PO BID #60 tab 01/27/21 02/14/21 02/14/21 Rx escitalopram oxalate 20 mg tablet 20 mg PO DAILY #30 tab 01/27/21 02/14/21 02/14/21 Rx Allergies Allergy/AdvReac Type Severity Reaction Status Date / Time No Known Allergies Allergy Unverified 05/10/20 11:48 PFSH Acute PFSH: Medical History Congenital stroke Generalized anxiety disorder 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 Surgical History No pertinent past surgical history Family History Other CAD (coronary artery disease) Diabetes Hypertension Social History Smoking and tobacco status: current every day smoker smokeless tobacco Smokeless tobacco user: chewing tobacco Smokeless tobacco details: 0.5 can per day Quit status (tobacco): considering quitting Second hand smoke exposure: Yes Vitals/I&O/Wt Last Vital Signs Temp 99.6 F 02/14/21 10:59 Pulse 124 H 02/14/21 14:27 Resp 18 02/14/21 14:27 BP 109/88 02/14/21 14:27 Pulse Ox 95 02/14/21 14:27 02/13/21 02/14/21 02/14/21 22:59 06:59 14:59 Intake Total 1050 / 1050 Balance 1050 / 1050 Weight last 48 hrs Weight 111.13 kg Physical Exam Const: COMMON NORMALS: no acute distress and patient oriented x3 GENERAL APPEARANCE: cooperative and comfortable HENMT: COMMON NORMALS: normocephalic HEAD & SCALP: normocephalic Eye: COMMON NORMALS: Equal, round and reactive pupils present and EOMs intact bilaterally GENERAL EYE: appearance normal, both eyes and all related structures PUPIL: Yes Equal, round and reactive pupils present Neck/C-Spine: COMMON NORMALS: no lymphadenopathy, no JVD and Thyroid normal GENERAL: Yes normal visual inspection THYROID: Thyroid normal CERVICAL SPINE: Yes Cervical spine tenderness and Yes Paracervical spasm OTHER: Has cervical rigidity, pain with range of motion Lymph: LYMPHATIC: no lymphadenopathy noted Resp: COMMON NORMALS: normal respiratory effort, No retractions, No use of accessory muscles and clear to auscultation bilaterally AUSCULTATION: clear to auscultation bilaterally Cardio: COMMON NORMALS: no JVD, regular rate, regular rhythm, S1 normal heart sound present, S2 normal heart sound present, No gallops present (Cardio), No clicks present (Cardio) and No murmurs present (Cardio) RATE: regular rate RHYTHM: regular rhythm HEART SOUNDS: S1 normal heart sound present and S2 normal heart sound present GI: COMMON NORMALS: Normal to inspection, nondistended, normoactive bowel sounds present, Soft to palpation, non-tender and No hepatosplenomegaly present PALPATION: Yes Soft to palpation and Yes No hepatosplenomegaly present Extremity: COMMON NORMALS: normal to inspection, full ROM and no pedal edema Neuro: COMMON NORMALS: patient oriented x3, CN's II-XII intact bilaterally, moves all extremities and no focal motor deficits Psych: COMMON NORMALS: mental status grossly normal, Normal thought process present and cooperative THOUGHT PROCESS: Normal thought process present Data : 02/14/21 11:41 02/14/21 11:41 Micro: Microbiology 02/14/21 12:19 Blood Culture - Preliminary Blood SPECIMEN COLLECTED 02/14/21 11:41 Blood Culture - Preliminary Blood SPECIMEN COLLECTED A&P Assessment and plan (1) Meningitis: -Has already received Rocephin in the ER -We will perform lumbar puncture, LP studies ordered -Start on vancomycin, Rocephin 2 g every 12 hours, Decadron 10 mg every 6 hours until LP studies can be obtained -Neurochecks, aspiration precautions, seizure precautions -Tylenol for fevers -Follow blood cultures, sputum cultures, LP studies -CT of the spine is pending -CT of the head does show left MCA stroke, likely his congenital stroke -Full code -DVT prophylaxis SCDs, as patient is receiving LP Status: Acute (2) Lebers optic atrophy: Status: Acute (3) Major depressive disorder in partial remission: Status: Chronic (4) Generalized anxiety disorder: Status: Chronic (5) Sleep apnea in adult: Status: Chronic (6) Congenital stroke: Status: Acute (7) No pertinent past surgical history: Status: Acute Attestations Medical Necessity Statement*: Patient requires hospitalization, outpatient with observation, for meningitis Coding Level of Care Code Acute It Integration Architect for [facility] Diagnoses Meningitis G03.9 Lebers optic atrophy H47.22 Major depressive disorder in partial remission F32.4 Generalized anxiety disorder F41.1 Sleep apnea in adult G47.30 Congenital stroke I63.9 No pertinent past surgical history Z78.9
[2021-02-14] MEDS: morphine 4 mg/mL SDV 1 mL 2 MG IVP (15:03)
[2021-02-14 15:41] LABS: D Dimer 1.65 ug/mIFEU (0-0.59)
[2021-02-14 15:56] LABS: Lactic Sepsis W/Reflex 2.1 mmol/L (0.5-2.2)
[2021-02-14 16:06] LABS: Procalcitonin 13.09 ng/mL (0-0.5)
[2021-02-14 16:13] LABS: C Reactive Protein 9.8 mg/L (0.0-4.9)
[2021-02-14 16:23] LABS: CSF Mononuclear # 0.004 10^3/uL (50-90); Mononuclear WBC CSF % 100 % (50-90); Polynuclear WBC CSF % 0 % (0-10); Red Blood Cell CSF 0 10^3/uL (0-0); White Blood Cell CSF 4 /uL (0-5)
[2021-02-14 16:25] LABS: Erythrocyte Sedimentation Rate 8 mm/hr (0-10)
[2021-02-14 16:26] LABS: Appearance CSF CLEAR (CLEAR); Color CSF COLORLESS (COLORLESS)
[2021-02-14 16:27] LABS: Pathology Referral Yes
--- NOTE | 2021-02-14 16:34 | CTR_ITS ---
PROCEDURE INFORMATION: Exam: CTA Chest With Contrast Exam date and time: 02/14/2021 5:38 PM Age: 30 years old Clinical indication: Shortness of breath; Additional info: Elevated d dimer, tachcyardia, hypoxia, SOB TECHNIQUE: Imaging protocol: Computed tomographic angiography of the chest with contrast. 3D rendering (Not supervised by radiologist): MIP and/or 3D reconstructed images were created by the technologist. Radiation optimization: All CT scans at this facility use at least one of these dose optimization techniques: automated exposure control; mA and/or kV adjustment per patient size (includes targeted exams where dose is matched to clinical indication); or iterative reconstruction. Contrast material: OMNI 350; Contrast volume: 77 ml; Contrast route: INTRAVENOUS (IV); COMPARISON: CR XR chest 1V portable [id number] 02/14/2021 11:29 AM RADIATION DOSE METRICS: Total DLP (mGy-cm): 603.29 FINDINGS: Pulmonary arteries: No evidence of pulmonary embolus. Aorta: No acute abnormality. Lungs: No consolidation. No masses. Pleural spaces: Unremarkable. No pneumothorax. No pleural effusion. Heart: No cardiomegaly. No pericardial effusion. Lymph nodes: No enlarged lymph nodes. Bones/joints: No acute fracture. Soft tissues: Within normal limits. CT/CT angio chest PE protcl [id number] IMPRESSION: No acute findings. Radiation Dose CTDIVOL = (mGy): DLP = 603.29 (mGy-cm)
[2021-02-14 16:38] LABS: Glucose CSF 65 mg/dL (40-70); Total Protein CSF 33 mg/dL (15-45)
--- NOTE | 2021-02-14 16:53 | PC.NURSE ---
Pt to MRI. Pt to go to 2nd floor after MRI.
--- NOTE | 2021-02-14 17:00 | MRR_ITS ---
PROCEDURE INFORMATION: Exam: MR Head Without Contrast Exam date and time: 02/14/2021 5:00 PM Age: 30 years old Clinical indication: Pain; Headache; Migraine; Aura effect not specified; Does not respond to medication; Without migrainosus; Additional info: Headache, nausea, vommiting TECHNIQUE: Imaging protocol: MR of the head without contrast. COMPARISON: CT head wo con* [id number] 02/14/2021 1:58 PM FINDINGS: Brain: There is no acute intracranial hemorrhage, cerebral edema, or midline shift. No restricted diffusion is present to suggest acute infarction. 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 Cerebral ventricles: No hydrocephalus. Bones/joints: Unremarkable. Paranasal sinuses: Nodular mucosal thickening is noted in the maxillary and sphenoid sinuses. Mastoid air cells: Normal as visualized. No mastoid effusion. Orbital cavity: Unremarkable. Soft tissues: Unremarkable. MR/MR head wo con* [id number] IMPRESSION: 1. No acute abnormality. 2. Chronic findings as discussed above.
[2021-02-14 17:03] LABS: Influenza A by IFA Negative (Negative); Influenza B by IFA Negative (Negative)
--- NOTE | 2021-02-14 17:07 | PC.NURSE ---
LP performed by MD, patient tolerated well. no acute distress noted
[2021-02-14 17:12] LABS: Reflex Lactate Order REFLEX LACTIC ORDERD
[2021-02-14] MEDS: iohexol 350 mg/mL 100 mL Btl IV (18:14)
[2021-02-14] MEDS: famotidine 20 mg Tablet PO (18:52)
[2021-02-14] MEDS: sodium chloride 0.9% 1,000 ML 125 ML IV (18:54)
--- NOTE | 2021-02-14 19:01 | PC.NURSE ---
Admission Note Pt taken to MRI from ED at 1700. Pt arrived to [facility] floor approximately 1800. Pt was immediately taken to CT by BATCH ANALYST and arrived back to room at approximately 1835. Report given to Rosy Vick LPN, and Marium Peterson RN.
[2021-02-14 19:22] LABS: Lactic Acid level (Lactate) 3.2 mmol/L (0.5-2.2)
[2021-02-14 22:17] LABS: Glucose Point of Care 178 mg/dL (70-110)
[2021-02-14] MEDS: dexamethasone 10 mg/mL INJ IVP (23:22)
[2021-02-15] VITALS (7 sets, daily range): BP systolic 121–174; BP diastolic 74–91; PULSE 57–106; RESP 18; TEMP 36.6–37.1; O2SAT 93–99
[2021-02-15] MEDS: sodium chloride 0.9% 1,000 ML 125 ML IV (02:48)
[2021-02-15] MEDS: cefTRIAXone 2,000 MG in sodium chloride 0.9% (plus) 50 ML 100 MG IV (02:48)
--- NOTE | 2021-02-15 05:00 | USCV_ITS ---
Justice Roche Age: 30 Gender: M : 1990 Exam Date: 02/15/2021 10:12 Ordering Phys: Juan Luis Thayer MD Technologist: Chloe Fernandez Exam Location: [facility] [place] Indication: Fever, neck pain BP: 121 / 74 HR: 63 Rhythm: Sinus Technical Quality: Fair MEASUREMENTS (Male / Female) Normal Values 2D ECHO LV Diastolic Diameter PLAX 2.9 cm 4.2 - 5.9 / 3.9 - 5.3 cm LV Systolic Diameter PLAX 2.0 cm LV Chamber Size 3.9 cm IVS Diastolic Thickness 1.9 cm 0.6 - 1.0 / 0.6 - 0.9 cm IVS Systolic Thickness 2.2 cm LVPW Diastolic Thickness 0.9 cm 0.6 - 1.0 / 0.6 - 0.9 cm LVPW Systolic Thickness 1.0 cm RV Chamber Size 2.8 cm LVOT Diameter 2.1 cm LV Ejection Fraction 2D Teich 56.7 % LV Ejection Fraction MOD 2C 62.1 % LV Ejection Fraction 2C AL 63.6 % LA Diameter 2.7 cm LA Width 2.7 cm LA Height 5.0 cm RA Width 3.4 cm RA Height 4.7 cm Aorta at Sinotubular Diameter 2.5 cm M-MODE LV Diastolic Diameter MM 4.6 cm 4.2 - 5.9 / 3.9 - 5.3 cm LV Systolic Diameter MM 3.4 cm LV Ejection Fraction MM Teich 53.1 % IVS Diastolic Thickness MM 1.3 cm 0.6 - 1.0 / 0.6 - 0.9 cm IVS Systolic Thickness MM 1.5 cm LVPW Diastolic Thickness MM 1.6 cm 0.6 - 1.0 / 0.6 - 0.9 cm LVPW Systolic Thickness MM 1.8 cm Aortic Annulus Diameter 3.8 cm LA Ao Ratio MM 0.9 MV E Point Septal Separation 0.3 cm DOPPLER AV Peak Velocity 115.0 cm/s LVOT Peak Velocity 94.0 cm/s AV Area Cont Eq vti 3.0 cm squared AV Area Cont Eq pk 2.9 cm squared MV Area PHT 4.1 cm squared Mitral E to A Ratio 1.6 MV E' Velocity 43.5 cm/s Mitral E to MV E' Ratio 5.8 Mitral E to LV E' Lateral Ratio 6.2 Mitral E to LV E' Septal Ratio 5.5 TR Peak Velocity 297.0 cm/s TR Peak Gradient 35.3 mmHg TV Peak E Velocity 66.0 cm/s Right Atrial Pressure 8.0 mmHg Pulmonary Artery Systolic Pressu 43.3 mmHg PV Peak Velocity 64.0 cm/s RV Acceleration Time 0.1 s RV Ejection Time 0.3 s RV AcT/ET 0.3 FINDINGS Left Ventricle Normal left ventricular size, systolic function and wall thickness, with no regional wall motion abnormalities. Left ventricular ejection fraction is estimated at 60 %. Normal diastolic function . Right Ventricle Normal right ventricular size and systolic function. RVSP could not be calculated due to incomplete tricuspid regurgitation velocity profile. Right Atrium Normal right atrial size. Left Atrium Normal left atrial size. Mitral Valve Structurally normal mitral valve. No mitral valve stenosis. Trace mitral valve regurgitation. Aortic Valve Structurally normal trileaflet aortic valve. No aortic valve stenosis. No aortic valve regurgitation. Tricuspid Valve Structurally normal tricuspid valve. No tricuspid valve stenosis. Trace tricuspid valve regurgitation. Pulmonic Valve Pulmonic valve not well visualized. Trace pulmonary valve regurgitation. Pericardium No pericardial effusion. Aorta Normal size aortic root. CONCLUSIONS 1. Normal left ventricular size, systolic function and wall thickness, with no regional wall motion abnormalities. Left ventricular ejection fraction is estimated at 60 %. Normal diastolic function . 2. Normal right ventricular size and systolic function. 3. No significant valvular abnormality. 4. No prior similar studies to compare. Matilde Segal MD (Electronically Signed) Final Date: 15 Feb 2021 14:29 S
[2021-02-15] MEDS: dexamethasone 10 mg/mL INJ IVP (05:36)
[2021-02-15] MEDS: famotidine 20 mg Tablet PO (09:52)
--- NOTE | 2021-02-15 10:51 | PC.CHAP ---
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 visit [] Patient/Family/Request visit [] Outpatient visit [] Follow-up visit [] Physician referral [] Code/Alert [XX] Routine visit [] Staff referral [] Actively dying [] Patient sleeping [] Family support [] [] Out of room [] Palliative care [] [XX] Receiving care in room [] Pre-surgical visit [] Trauma [] Long length of stay [] ICU visit [] Other: Relational/Emotional Strength [] Patient feels connected with others/family/visitors/staff [] Distress [] Loneliness/isolation [] Abandonment Spirituality of Patient [] Person of [place] [] Attends Orthodox of their [place] [] Believes in Prayer [] Reads Bible or Church materials [] There are Spiritual issues to be addressed [facility] [employer]er Interventions [] Prayer [] Active listening [] Non-anxious presence [] Spiritual/emotional support [] Crisis/trauma care [] Spiritual counseling [] Bereavement support [] Provided bereavement packet [] Provided Bible/devotional materials [] Provided toy/stuffed animal, coloring book to patient or family member [] Provided Communion [] Anointing/[place] [] Salvation [] Completed spiritual assessment [] Other: Impact on Illness or Injury [] Angry [] Fearful [] Anxious [] Often cries [] Exhaustion [] Unable to work [] Unable to attend methodist [] Unable to walk/stand [] Unable to read [] Unable to drive [] Unable to eat/drink [] Unable to sleep [] Unable to be with family [] Patient intubated [] Other: Summary: Van Loader made two attempts to visit pt; staff in room both times. Time spent with patient
[2021-02-15 11:11] LABS: Basophils # 0.1 10^3/uL (0.0-0.1); Basophils % 0.3 %; Hematocrit 40.2 % (42.0-52.0); Hemoglobin 13.4 g/dL (11.7-16.6); Lymphocytes # 0.8 10^3/uL (0.8-4.8); Lymphocytes % 3.9 %; Mean Corpuscular HGB Conc 33.3 g/dL (30.0-36.0); Mean Corpuscular Hemoglobin 32.4 pg (28.0-34.0); Mean Corpuscular Volume 97.3 fL (80-94); Mean Platelet Volume 10.7 fL (7.4-10.4); Monocytes # 0.5 10^3/uL (0.2-0.9); Monocytes % 2.1 %; Neutrophils # 19.75 10^3/uL (1.8-7.7); Neutrophils % 91.7 %; Nucleated Red Blood Cells % 0 %; Platelet Count 208 10^3/cmm (130-400); Red Blood Count 4.13 10^6/uL (4.1-5.3); Red Cell Distribution Width 13.2 % (12.1-15.1); White Blood Count 21.5 10^3/uL (4.0-10.0)
--- NOTE | 2021-02-15 11:18 | P.DS_ITS ---
Discharge Providers Date of Admission: 02/14/21 14:38 Date of Discharge: February 15, 2021 Attending Provider at Admission: Juan Luis Thayer MD Attending Provider at Discharge: Juan Luis Thayer MD Primary Care Provider: Richar Otero MD Diagnoses at Discharge Discharge Diagnosis (1) Meningitis: Status: Acute (2) Lebers optic atrophy: Status: Acute (3) Major depressive disorder in partial remission: Status: Chronic (4) Generalized anxiety disorder: Status: Chronic (5) Sleep apnea in adult: Status: Chronic (6) Congenital stroke: Status: Acute (7) No pertinent past surgical history: Status: Acute Reason for Visit Reason for Visit: SHAKING, N/V Hospital Course Hospital Course Justice Roche is a 30 year old male lebers optic atrophy, 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 Patient was admitted to [facility] for concerns for meningitis, he received Decadron, vancomycin, Rocephin, as studies were pending and results were coming back -WBC 9.2, ESR unremarkable, CRP very unremarkable, interestingly his pro-Eusebio was 13.09, afebrile -CSF study showed that there were clear, colorless, 4 WBCs, 0 RBCs, 65 glucose, 33 protein, Gram stain no organisms. Thus is very unlikely that patient has meningitis, on day of discharge he was asymptomatic, no neck pain, remained afebrile, white blood cell count was 21.2, neutrophilic, likely secondary Decadron. Nonetheless patient's send out labs are pending, should follow-up with neurology and primary care for results for CSF studies. Follow-up with primary care for CSF cultures -Blood cultures negative for 24 hours -TSH within normal limits -UA negative for UTI -CT angiogram of the chest did not show any pneumonia, no pulmonary emboli -CT of the cervical spine did not show any epidural abscess, no vertebral osteomyelitis, no fracture -MRI of the brain had no acute findings, but did show chronic infarct involving the posterior lateral left frontal lobe -Urine toxicology screen unremarkable -Rapid influenza, rapid flu negative -No significant electrolyte abnormalities -On the morning of discharge, patient was doing well, at bedside, alert oriented x3, following all commands, no headache, blurry vision, no neck pain, he thought maybe he pulled a muscle but is unsure -He does have a history of seizures, he had a seizure during a stress test when he was given dry, he does feel that his neck was twitching more than usual, and he has diffuse joint aches and pains, but denies any seizure-like episode -For now I will have patient follow-up with neurology as outpatient, follow-up in a month, follow-up for EEG -I did offer a trial of Keppra, but patient says that he would prefer to hold off for now and follow-up with Dr. Lomeli -Patient was advised if he were to have recurrent symptoms go to emergency room, can consider a trial of seizure medications if the symptoms were to recur Physical Exam Const: COMMON NORMALS: no acute distress and patient oriented x3 GENERAL APPEARANCE: cooperative and comfortable Eye: COMMON NORMALS: Equal, round and reactive pupils present GENERAL EYE: appearance normal, both eyes and all related structures PUPIL: Yes Equal, round and reactive pupils present Neck/C-Spine: COMMON NORMALS: full ROM, no lymphadenopathy, no JVD and Thyroid normal THYROID: Thyroid normal Lymph: LYMPHATIC: no lymphadenopathy noted Resp: COMMON NORMALS: normal respiratory effort, No retractions, No use of accessory muscles and clear to auscultation bilaterally AUSCULTATION: clear to auscultation bilaterally Cardio: COMMON NORMALS: no JVD, regular rate, regular rhythm, S1 normal heart sound present, S2 normal heart sound present, No gallops present (Cardio), No clicks present (Cardio) and No murmurs present (Cardio) RATE: regular rate RHYTHM: regular rhythm HEART SOUNDS: S1 normal heart sound present and S2 normal heart sound present GI: COMMON NORMALS: Normal to inspection, nondistended, normoactive bowel sounds present, Soft to palpation, non-tender and No hepatosplenomegaly present PALPATION: Yes Soft to palpation and Yes No hepatosplenomegaly present Extremity: COMMON NORMALS: normal to inspection, full ROM and no pedal edema Neuro: COMMON NORMALS: patient oriented x3, CN's II-XII intact bilaterally, moves all extremities and no focal motor deficits Psych: COMMON NORMALS: mental status grossly normal, Normal thought process present and cooperative THOUGHT PROCESS: Normal thought process present Discharge Data Data Completed and Pending: Completed Studies During Hospitalization Category Date Time Status CT angio chest PE protcl [id number] Stat Cat Scan 02/14/21 16:[address] cervical spin wo con* [id number] Urge nt Cat Scan 02/14/21 13:[address] head wo con* [id number] Urgent Cat Scan 02/14/21 13:30 Completed XR chest 1V freedom ble [id number] Urgent Exams 02/14/21 11:10 Completed MR head wo con* [id number] Stat MRI 02/14/21 17:00 Completed Pending at discharge Category Date Time Status Blood Culture Sta t Lab 02/14/21 12:19 Results C Reactive Protei n Stat Lab 02/15/21 10:45 Received CSF Culture & Gra m Stain Stat Lab 02/14/21 15:52 Results Comprehensive Met abolic Panel Stat Lab 02/15/21 10:45 Received Lactate (Lactic A matt level) Stat Lab 02/15/21 10:45 Received Lymes Disease Ant ibodies CSF Stat Lab 02/14/21 15:52 Received Miscellaneous Taylor t Stat Lab 02/14/21 15:49 Received Miscellaneous Taylor t Stat Lab 02/14/21 15:49 Received Miscellaneous Taylor t Stat Lab 02/14/21 15:49 Received Procalcitonin Sta t Lab 02/15/21 10:45 Received Sputum Culture an d Gram Stain Stat Lab 02/14/21 14:41 Uncollected [facility]. Virus IFA CSF Stat Lab 02/14/21 15:52 Received Urine Culture Sta t Lab 02/14/21 11:41 Received VDRL on CSF Stat Lab 02/14/21 15:52 Received CV echo complete* [id number] Routine Ultrasound 02/15/21 05:00 Ordered Labs from last 24 hours 02/15/21 02/15/21 02/15/21 10:45 10:45 10:45 WBC 21.5 H RBC 4.13 Hgb 13.4 Hct 40.2 L MCV 97.3 H MCH 32.4 MCHC 33.3 RDW 13.2 Plt Count 208 MPV 10.7 H Neut % (Auto) 91.7 Lymph % (Auto) 3.9 [place] % (Auto) 2.1 Eos % (Auto) 0.0 Baso % (Auto) 0.3 Neut # (Auto) 19.75 H Lymph # (Auto) 0.8 [place] # (Auto) 0.5 Eos # (Auto) 0.0 Baso # (Auto) 0.1 Nucleated RBC % (a uto) 0 Nucleated RBCs # 0.0 ESR D-Dimer Sodium Pending Potassium Pending Chloride Pending Carbon Dioxide Pending Anion Gap Pending BUN Pending Creatinine Pending GFR Calculation Pending Glucose Pending POC Glucose Calculated Osmolal ity Pending Lactic Acid Lactic Acid (Sepsi s) Lactate Pending Calcium Pending Total Bilirubin Pending AST Pending ALT Pending Alkaline Phosphata se Pending C-Reactive Protein Pending Total Protein Pending Albumin Pending Globulin Pending Procalcitonin Pending TSH Urine Color Urine Appearance Urine pH Ur Specific Gravit y Urine Protein Urine Glucose (UA) Urine Ketones Urine Blood Urine Nitrate Urine Bilirubin Urine Urobilinogen Ur Leukocyte Marga ase CSF Appearance CSF Color CSF Specific Gravi ty CSF WBC CSF RBC CSF Mononuclear # Auto CSF Mononuclear WB Cs % CSF Polynuclear WB Cs # CSF Polynuclear WB Cs % CSF Diff Comment CSF Glucose CSF LDH CSF Total Protein CSF Albumin CSF VDRL CSF Lyme IgG (Immb lot) CSF Lyme IgM (Immb lot) CSF Bella Encep h IgG CSF [facility] [place] Enc IgM IFA CSF Bella Encep h Intrp Urine Opiates Scre en Ur Barbiturates Sc reen Ur Phencyclidine S crn Ur Amphetamines Sc reen U Benzodiazepines Scrn Urine Cocaine Scre en U Marijuana (THC) Screen Lyme IgG Bands Pre sent Lyme IgM Bands Pre sent Influenza Type A A g Influenza Type B A g SARS-CoV-2 Ag (Rap id) [facility] Test Referenc e 02/14/21 02/14/21 02/14/21 22:12 18:55 16:09 WBC RBC Hgb Hct MCV MCH MCHC RDW Plt Count MPV Neut % (Auto) Lymph % (Auto) [place] % (Auto) Eos % (Auto) Baso % (Auto) Neut # (Auto) Lymph # (Auto) [place] # (Auto) Eos # (Auto) Baso # (Auto) Nucleated RBC % (a uto) Nucleated RBCs # ESR D-Dimer Sodium Potassium Chloride Carbon Dioxide Anion Gap BUN Creatinine GFR Calculation Glucose POC Glucose 178 H Calculated Osmolal ity Lactic Acid Lactic Acid (Sepsi s) 3.2 H Lactate Calcium Total Bilirubin AST ALT Alkaline Phosphata se C-Reactive Protein Total Protein Albumin Globulin Procalcitonin TSH Urine Color Urine Appearance Urine pH Ur Specific Gravit y Urine Protein Urine Glucose (UA) Urine Ketones Urine Blood Urine Nitrate Urine Bilirubin Urine Urobilinogen Ur Leukocyte Marga ase CSF Appearance CSF Color CSF Specific Gravi ty CSF WBC CSF RBC CSF Mononuclear # Auto CSF Mononuclear WB Cs % CSF Polynuclear WB Cs # CSF Polynuclear WB Cs % CSF Diff Comment CSF Glucose CSF LDH CSF Total Protein CSF Albumin CSF VDRL CSF Lyme IgG (Immb lot) CSF Lyme IgM (Immb lot) CSF Bella Encep h IgG CSF [facility] [place] Enc IgM IFA CSF Bella Encep h Intrp Urine Opiates Scre en Ur Barbiturates Sc reen Ur Phencyclidine S crn Ur Amphetamines Sc reen U Benzodiazepines Scrn Urine Cocaine Scre en U Marijuana (THC) Screen Lyme IgG Bands Pre sent Lyme IgM Bands Pre sent Influenza Type A A g Negative Influenza Type B A g Negative SARS-CoV-2 Ag (Rap id) Misc Test Referenc e 02/14/21 02/14/21 02/14/21 15:52 15:52 15:52 WBC RBC Hgb Hct MCV MCH MCHC RDW Plt Count MPV Neut % (Auto) Lymph % (Auto) [place] % (Auto) Eos % (Auto) Baso % (Auto) Neut # (Auto) Lymph # (Auto) [place] # (Auto) Eos # (Auto) Baso # (Auto) Nucleated RBC % (a uto) Nucleated RBCs # ESR D-Dimer Sodium Potassium Chloride Carbon Dioxide Anion Gap BUN Creatinine GFR Calculation Glucose POC Glucose Calculated Osmolal ity Lactic Acid Lactic Acid (Sepsi s) Lactate Calcium Total Bilirubin AST ALT Alkaline Phosphata se C-Reactive Protein Total Protein Albumin Globulin Procalcitonin TSH Urine Color Urine Appearance Urine pH Ur Specific Gravit y Urine Protein Urine Glucose (UA) Urine Ketones Urine Blood Urine Nitrate Urine Bilirubin Urine Urobilinogen Ur Leukocyte Marga ase CSF Appearance CSF Color CSF Specific Gravi ty CSF WBC CSF RBC CSF Mononuclear # Auto CSF Mononuclear WB Cs % CSF Polynuclear WB Cs # CSF Polynuclear WB Cs % CSF Diff Comment CSF Glucose CSF LDH CSF Total Protein CSF Albumin CSF VDRL Pending CSF Lyme IgG (Immb lot) Pending CSF Lyme IgM (Immb lot) Pending CSF Bella Encep h IgG Pending CSF [facility] Enc IgM IFA Pending CSF Bella Encep h Intrp Pending Urine Opiates Scre en Ur Barbiturates Sc reen Ur Phencyclidine S crn Ur Amphetamines Sc reen U Benzodiazepines Scrn Urine Cocaine Scre en U Marijuana (THC) Screen Lyme IgG Bands Pre sent Pending Lyme IgM Bands Pre sent Pending Influenza Type A A g Influenza Type B A g SARS-CoV-2 Ag (Rap id) Misc Test Referenc e 02/14/21 02/14/21 02/14/21 15:52 15:49 15:49 WBC RBC Hgb Hct MCV MCH MCHC RDW Plt Count MPV Neut % (Auto) Lymph % (Auto) [place] % (Auto) Eos % (Auto) Baso % (Auto) Neut # (Auto) Lymph # (Auto) [place] # (Auto) Eos # (Auto) Baso # (Auto) Nucleated RBC % (a uto) Nucleated RBCs # ESR D-Dimer Sodium Potassium Chloride Carbon Dioxide Anion Gap BUN Creatinine GFR Calculation Glucose POC Glucose Calculated Osmolal ity Lactic Acid Lactic Acid (Sepsi s) Lactate Calcium Total Bilirubin AST ALT Alkaline Phosphata se C-Reactive Protein Total Protein Albumin Globulin Procalcitonin TSH Urine Color Urine Appearance Urine pH Ur Specific Gravit y Urine Protein Urine Glucose (UA) Urine Ketones Urine Blood Urine Nitrate Urine Bilirubin Urine Urobilinogen Ur Leukocyte Marga ase CSF Appearance Clear CSF Color Colorless CSF Specific Gravi ty 1.010 CSF WBC 4 CSF RBC 0 CSF Mononuclear # Auto 0.004 L CSF Mononuclear WB Cs % 100 H CSF Polynuclear WB Cs # 0.000 CSF Polynuclear WB Cs % 0 CSF Diff Comment Yes CSF Glucose 65 CSF LDH Cancelled CSF Total Protein 33 CSF Albumin Cancelled CSF VDRL CSF Lyme IgG (Immb lot) CSF Lyme IgM (Immb lot) CSF Bella Encep h IgG CSF [facility] Enc IgM IFA CSF Bella Encep h Intrp Urine Opiates Scre en Ur Barbiturates Sc reen Ur Phencyclidine S crn Ur Amphetamines Sc reen U Benzodiazepines Scrn Urine Cocaine Scre en U Marijuana (THC) Screen Lyme IgG Bands Pre sent Lyme IgM Bands Pre sent Influenza Type A A g Influenza Type B A g SARS-CoV-2 Ag (Rap id) Misc Test Referenc e Pending Pending 02/14/21 02/14/21 02/14/21 15:49 15:20 15:20 WBC RBC Hgb Hct MCV MCH MCHC RDW Plt Count MPV Neut % (Auto) Lymph % (Auto) [place] % (Auto) Eos % (Auto) Baso % (Auto) Neut # (Auto) Lymph # (Auto) [place] # (Auto) Eos # (Auto) Baso # (Auto) Nucleated RBC % (a uto) Nucleated RBCs # ESR D-Dimer Sodium Potassium Chloride Carbon Dioxide Anion Gap BUN Creatinine GFR Calculation Glucose POC Glucose Calculated Osmolal ity Lactic Acid 2.1 Lactic Acid (Sepsi s) Lactate Calcium Total Bilirubin AST ALT Alkaline Phosphata se C-Reactive Protein 9.8 H Total Protein Albumin Globulin Procalcitonin 13.09 H TSH Cancelled Urine Color Urine Appearance Urine pH Ur Specific Gravit y Urine Protein Urine Glucose (UA) Urine Ketones Urine Blood Urine Nitrate Urine Bilirubin Urine Urobilinogen Ur Leukocyte Marga ase CSF Appearance CSF Color CSF Specific Gravi ty CSF WBC CSF RBC CSF Mononuclear # Auto CSF Mononuclear WB Cs % CSF Polynuclear WB Cs # CSF Polynuclear WB Cs % CSF Diff Comment CSF Glucose CSF LDH CSF Total Protein CSF Albumin CSF VDRL CSF Lyme IgG (Immb lot) CSF Lyme IgM (Immb lot) CSF Bella Encep h IgG CSF [facility] Enc IgM IFA CSF Bella Encep h Intrp Urine Opiates Scre en Ur Barbiturates Sc reen Ur Phencyclidine S crn Ur Amphetamines Sc reen U Benzodiazepines Scrn Urine Cocaine Scre en U Marijuana (THC) Screen Lyme IgG Bands Pre sent Lyme IgM Bands Pre sent Influenza Type A A g Influenza Type B A g SARS-CoV-2 Ag (Rap id) [facility] Test Referenc e Pending 02/14/21 02/14/21 02/14/21 15:20 15:20 14:30 WBC RBC Hgb Hct MCV MCH MCHC RDW Plt Count MPV Neut % (Auto) Lymph % (Auto) [place] % (Auto) Eos % (Auto) Baso % (Auto) Neut # (Auto) Lymph # (Auto) [place] # (Auto) Eos # (Auto) Baso # (Auto) Nucleated RBC % (a uto) Nucleated RBCs # ESR 8 D-Dimer 1.65 H Sodium Potassium Chloride Carbon Dioxide Anion Gap BUN Creatinine GFR Calculation Glucose POC Glucose Calculated Osmolal ity Lactic Acid Lactic Acid (Sepsi s) Lactate Calcium Total Bilirubin AST ALT Alkaline Phosphata se C-Reactive Protein Total Protein Albumin Globulin Procalcitonin TSH Urine Color Urine Appearance Urine pH Ur Specific Gravit y Urine Protein Urine Glucose (UA) Urine Ketones Urine Blood Urine Nitrate Urine Bilirubin Urine Urobilinogen Ur Leukocyte Marga ase CSF Appearance CSF Color CSF Specific Gravi ty CSF WBC CSF RBC CSF Mononuclear # Auto CSF Mononuclear WB Cs % CSF Polynuclear WB Cs # CSF Polynuclear WB Cs % CSF Diff Comment CSF Glucose CSF LDH CSF Total Protein CSF Albumin CSF VDRL CSF Lyme IgG (Immb lot) CSF Lyme IgM (Immb lot) CSF Bella Encep h IgG CSF [facility] Enc IgM IFA CSF Bella Encep h Intrp Urine Opiates Scre en Ur Barbiturates Sc reen Ur Phencyclidine S crn Ur Amphetamines Sc reen U Benzodiazepines Scrn Urine Cocaine Scre en U Marijuana (THC) Screen Lyme IgG Bands Pre sent Lyme IgM Bands Pre sent Influenza Type A A g Influenza Type B A g SARS-CoV-2 Ag (Rap id) Negative Misc Test Referenc e 02/14/21 02/14/21 02/14/21 11:41 11:41 11:41 WBC RBC Hgb Hct MCV MCH MCHC RDW Plt Count MPV Neut % (Auto) Lymph % (Auto) [place] % (Auto) Eos % (Auto) Baso % (Auto) Neut # (Auto) Lymph # (Auto) [place] # (Auto) Eos # (Auto) Baso # (Auto) Nucleated RBC % (a uto) Nucleated RBCs # ESR D-Dimer Sodium Potassium Chloride Carbon Dioxide Anion Gap BUN Creatinine GFR Calculation Glucose POC Glucose Calculated Osmolal ity Lactic Acid Lactic Acid (Sepsi s) Lactate Calcium Total Bilirubin AST ALT Alkaline Phosphata se C-Reactive Protein Total Protein Albumin Globulin Procalcitonin TSH 1.16 Urine Color Yellow Urine Appearance Clear Urine pH 5 Ur Specific Gravit y 1.015 Urine Protein Neg Urine Glucose (UA) Norm Urine Ketones Negative Urine Blood Neg Urine Nitrate Negative Urine Bilirubin Neg Urine Urobilinogen 1 H Ur Leukocyte Marga ase Negative CSF Appearance CSF Color CSF Specific Gravi ty CSF WBC CSF RBC CSF Mononuclear # Auto CSF Mononuclear WB Cs % CSF Polynuclear WB Cs # CSF Polynuclear WB Cs % CSF Diff Comment CSF Glucose CSF LDH CSF Total Protein CSF Albumin CSF VDRL CSF Lyme IgG (Immb lot) CSF Lyme IgM (Immb lot) CSF Bella Encep h IgG CSF [facility] Enc IgM IFA CSF Bella Encep h Intrp Urine Opiates Scre en Negative Ur Barbiturates Sc reen Negative Ur Phencyclidine S crn Negative Ur Amphetamines Sc reen Negative U Benzodiazepines Scrn Negative Urine Cocaine Scre en Negative U Marijuana (THC) Screen Negative Lyme IgG Bands Pre sent Lyme IgM Bands Pre sent Influenza Type A A g Influenza Type B A g SARS-CoV-2 Ag (Rap id) Mis Test Referenc e 02/14/21 02/14/21 02/14/21 11:41 11:41 11:41 WBC 9.2 RBC 4.64 Hgb 15.4 Hct 46.0 MCV 99.1 H MCH 33.2 MCHC 33.5 RDW 12.6 Plt Count 210 MPV 10.9 H Neut % (Auto) 84.2 Lymph % (Auto) 12.3 [place] % (Auto) 1.1 Eos % (Auto) 1.8 Baso % (Auto) 0.3 Neut # (Auto) 7.74 H Lymph # (Auto) 1.1 [place] # (Auto) 0.1 L Eos # (Auto) 0.2 Baso # (Auto) 0.0 Nucleated RBC % (a uto) 0 Nucleated RBCs # 0.0 ESR D-Dimer Sodium 139 Potassium 4.7 Chloride 104 Carbon Dioxide 23 Anion Gap 16.7 BUN 20 Creatinine 1.1 GFR Calculation 78.1 L Glucose 74 POC Glucose Calculated Osmolal ity 289 Lactic Acid 3.4 H Lactic Acid (Sepsi s) Lactate Calcium 8.9 Total Bilirubin 0.4 AST 23 ALT 22 Alkaline Phosphata se 93 C-Reactive Protein 1.5 Total Protein 7.9 Albumin 4.7 Globulin 3.2 Procalcitonin TSH Urine Color Urine Appearance Urine pH Ur Specific Gravit y Urine Protein Urine Glucose (UA) Urine Ketones Urine Blood Urine Nitrate Urine Bilirubin Urine Urobilinogen Ur Leukocyte Marga ase CSF Appearance CSF Color CSF Specific Gravi ty CSF WBC CSF RBC CSF Mononuclear # Auto CSF Mononuclear WB Cs % CSF Polynuclear WB Cs # CSF Polynuclear WB Cs % CSF Diff Comment CSF Glucose CSF LDH CSF Total Protein CSF Albumin CSF VDRL CSF Lyme IgG (Immb lot) CSF Lyme IgM (Immb lot) CSF Bella Encep h IgG CSF [facility] Enc IgM IFA CSF Bella Encep h Intrp Urine Opiates Scre en Ur Barbiturates Sc reen Ur Phencyclidine S crn Ur Amphetamines Sc reen U Benzodiazepines Scrn Urine Cocaine Scre en U Marijuana (THC) Screen Lyme IgG Bands Pre sent Lyme IgM Bands Pre sent Influenza Type A A g Influenza Type B A g SARS-CoV-2 Ag (Rap id) Misc Test Referenc e Vitals: Last Vital Signs Temp 98.7 F 02/15/21 07:21 Pulse 66 02/15/21 07:21 Resp 18 02/15/21 07:21 BP 121/74 02/15/21 07:21 Pulse Ox 93 02/15/21 07:21 Discharge Plan Discharge Patient Disposition: Home Condition: Stable Prescriptions: Continued rosuvastatin [Crestor] 20 mg tablet 20 mg PO DAILY RF: 0 lisinopril 10 mg tablet 10 mg PO DAILY RF: 0 buspirone 10 mg tablet 10 mg PO BID Qty: 60 RF: 2 escitalopram oxalate 20 mg tablet 20 mg PO DAILY Qty: 30 RF: 2 albuterol sulfate 90 mcg/actuation HFA aerosol inhaler 2 inh INHALATION Q6H PRN (Reason: shortness of breath or wheezing) Qty: 8 RF: 0 Discharge Orders: Discharge Order (Routine); Ordered 02/15/21 Ordered By: Juan Luis Thayer Referrals: Deborah Lomeli MD [Physician] - 1 month (Seizures) Discharge Diet: Regular Discharge Activity: Resume usual activity Patient Instructions: Opioid Safety Activity Restrictions/Additional Instructions: -If you are to have recurrent neck pain, fevers, neck stiffness go to the emergency room -If you have recurrent possible seizure-like episodes come to the emergency room Discharge Attestations Time Spent in Discharge Care*: less than 30 min Quality Metrics Clinical Quality Measures During this hospital stay, did patient experience: None Coding Level of Care Code Acute g FW DC note Diagnoses Meningitis G03.9 Lebers optic atrophy H47.22 Major depressive disorder in partial remission F32.4 Generalized anxiety disorder F41.1 Sleep apnea in adult G47.30 Congenital stroke I63.9 No pertinent past surgical history Z78.9
[2021-02-15 11:36] LABS: Lactate (Lactic Acid level) 2.3 mmol/L (0.5-2.2)
[2021-02-15 11:44] LABS: Procalcitonin 20.29 ng/mL (0-0.5)
[2021-02-15 11:55] LABS: Alanine Aminotransferase 18 U/L (0-41); Albumin Level 4.1 g/dL (3.5-5.2); Alkaline Phosphatase 68 IU/L (40-130); Anion Gap 15.5 (5-19); Aspartate Amino Transferase 15 U/L (0-40); Blood Urea Nitrogen 15 mg/dL (6-20); C Reactive Protein 138.3 mg/L (0.0-4.9); Calcium 8.4 mg/dL (8.5-10.5); Carbon Dioxide 21 mmol/L (22-29); Chloride 105 mmol/L (98-107); Globulin 3.2 g/dL (1.3-4.6); Glomerular Filtration Rate 78.1 mL/min (90-130); Glucose 211 mg/dL (65-115); Osmolality Calculated 291 mOsm/kg (285-295); Potassium 4.5 mmol/L (3.5-5.1); Sodium 137 mmol/L (136-145); Total Bilirubin 0.4 mg/dL (0.15-1.2); Total Protein 7.3 g/dL (6.6-8.7)
--- NOTE | 2021-02-15 13:51 | PC.NURSE ---
PT HAS DONE WELL FOR ME TODAY. NO COMPLAINTS OF PAIN. SAW PT FIRST THING THIS MORNING AND DECISION WAS MADE TO D/C PT. PT HAS BEEN AMBULATING IN THE [place]. PT HAS DONE WELL AMBULATING. DISCHARGE PAPERWORK WAS GONE OVER WITH PT. ALL QUESTIONS WERE ANSWERED. IV WAS REMOVED. PT TOLERATED WELL. CATHETER TIP INTACT. PT WAS WHEELED OUT BY THE AID. PT SAFELY DISCHARGED FROM THE HOSPITAL AT 13:18.
--- NOTE | 2021-02-17 09:57 | PC.RESP ---
SMOKING CESSATION INFORMATION SENT TO PATIENT.
--- NOTE | 2021-02-17 09:59 | PC.RESP ---
SMOKING CESSATION INFORMATION SENT TO PATIENT.
[2021-02-18 17:02] LABS: St. Louis Enceph.Virus IGG CSF <1:1; St. Louis Enceph.Virus IGM CSF <1:1
[2021-02-21 01:47] LABS: VDRL on CSF NON-REACTIVE
[2021-02-22 19:41] LABS: Lyme Disease AB (IGG),IBL NO BANDS DETECTED; Lyme Disease AB (IGM), IBL NO BANDS DETECTED
== END 2021-02-15 13:18 | disposition home or self-care (01) ==
LOC: ER 11:27 → MEDSURG 15:29
PROVIDERS: Admitting Provider Family Medicine; Emergency Provider Family Medicine; PCP Family Medicine; Visit Provider Family Medicine
DX: G03.9 Meningitis, unspecified (principal); H47.22 Hereditary optic atrophy; F32.4 Major depressive disorder, single episode, in partial remission; F41.1 Generalized anxiety disorder; G47.30 Sleep apnea, unspecified; I63.9 Cerebral infarction, unspecified; F17.210 Nicotine dependence, cigarettes, uncomplicated
CPT/HCPCS: 36415; 36416; 70450; 70551; 71045; 71275; 72125; 80053; 80306; 80500; 81003; 82042; 82945; 82962; 83605; 83615; 84145; 84157; 84315; 84443; 85025; 85378; 85651; 86140; 86592; 86617; 86653; 87040; 87070; 87075; 87086; 87205; 87426; 87804; 89050; 93005; 93306; 94664; 96365; 96367; 96375; 96376; 99285; G0378; J0696; J1100; J1885; J2060; J2270; J2405; J3370; J7030; J7040; Q9967

== ENCOUNTER 2021-08-12 13:36 | Outpatient (RCR) | payer OTHER, SELFPAY | END 2021-09-09 23:59 | disposition home or self-care (01) | LOC: SPT 13:36 | PROVIDERS: PCP Family Medicine; Visit Provider Family Medicine | DX: M25.512 Pain in left shoulder (principal) | CPT/HCPCS: 97110; 97161 ==

== ENCOUNTER 2021-09-10 06:00 | Outpatient (RCR) | payer OTHER, SELFPAY | END 2021-09-17 23:59 | disposition home or self-care (01) | LOC: SPT 06:00 | PROVIDERS: PCP Family Medicine; Visit Provider Family Medicine | DX: M25.512 Pain in left shoulder (principal) | CPT/HCPCS: 97110 ==

== ENCOUNTER 2022-02-26 15:26 | Emergency (ER) | payer OTHER, SELFPAY ==
[2022-02-26 15:41] VITALS: BP 158/101; PULSE 70; RESP 16; TEMP 36.6; O2SAT 99
--- NOTE | 2022-02-26 15:59 | ED_ITS ---
HPI - Skin/Abscess/Foreign Bdy General: Chief complaint: Skin/Abscess/Foreign Body Stated complaint: WC/cut on left side Time Seen by Provider: 02/26/22 15:48 History of Present Illness: 31-year-old male presents emergency department chief complaint of a cut he sustained to his left hand prior to arrival while washing dishes. Reports he was cleaning the machine as washing dishes and cut the base of his pinky finger the patient reports his tetanus shot is up-to-date last 5 years reports that he has a flap already cut it on a sharp piece of metal reporting no other associated issues. 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 Surgical History No pertinent past surgical history Family History Other CAD (coronary artery disease) Diabetes Hypertension Social History (Updated 09/30/21 @ 15:59 by Jayant Palomo LPN) Smoking and tobacco status: current every day smoker smokeless tobacco Smokeless tobacco user: chewing tobacco Smokeless tobacco details: 0.5 can per day Quit status (tobacco): has tried quititng Number of times tried to quit tobacco: 12 Second hand smoke exposure: No Physical Exam Const: COMMON NORMALS: no acute distress, patient oriented x3 and healthy appearing HENMT: COMMON NORMALS: normocephalic and atraumatic HEAD & SCALP: normocephalic and atraumatic Eye: COMMON NORMALS: Equal, round and reactive pupils present and EOMs intact bilaterally PUPIL: Yes Equal, round and reactive pupils present Neck/C-Spine: COMMON NORMALS: full ROM, supple and no JVD Lymph: LYMPHATIC: no lymphadenopathy noted Chest: COMMONS NORMALS: normal inspection of the chest and normal palpation of entire chest wall Resp: COMMON NORMALS: normal respiratory effort, No retractions and clear to auscultation bilaterally EFFORT & INSPECTION: Yes able to speak in complete sentences and Yes symmetric chest movement AUSCULTATION: clear to auscultation bilaterally Cardio: COMMON NORMALS: no JVD, regular rate and regular rhythm RATE: regular rate RHYTHM: regular rhythm GI: COMMON NORMALS: Normal to inspection, nondistended, normoactive bowel sounds present, Soft to palpation and non-tender INSPECTION: Yes normal to inspection PALPATION: Yes Soft to palpation : COMMON NORMALS: Yes no CVA tenderness BLADDER/KIDNEY EXAM: Yes no CVA tenderness Back/Pelvis: COMMON NORMALS: no CVA tenderness Extremity: COMMON NORMALS: normal to inspection and full ROM Neuro: COMMON NORMALS: patient oriented x3, CN's II-XII intact bilaterally, moves all extremities and no focal motor deficits Psych: COMMON NORMALS: mental status grossly normal, Normal thought process present, cooperative and normal affect THOUGHT PROCESS: Normal thought process present Skin: TRAUMA: lacerations and/or abrasions noted (Laceration noted to the base of the left pinky finger) Course Vital Signs: Vital signs: Vital Signs Temperature 97.8 F 02/26/22 15:41 Pulse Rate 70 02/26/22 15:41 Respiratory Rate 16 02/26/22 15:41 Blood Pressure 158/101 02/26/22 15:41 Pulse Oximetry 99 02/26/22 15:41 MDM - Skin/Abscess/Foreign Bdy Medicial Decision Making Patient with Of a small laceration flap noted to the base of the left pinky finger this flap is minimal bleeding noted full range of motion appreciated of the fifth finger of the left of the left hand neurovascular tact distally patient underwent a basic laceration repair no complications were noted he was subsequent discharged back to work advised further follow-up in 7 days for suture removal he was started on some Keflex for antibiotic prophylaxis which was advised to return the interim if any of his symptoms persist or worse. Discharge Plan Discharge Patient Disposition: Home Clinical Impression: Laceration of finger Condition: Stable Prescriptions: New cephalexin 500 mg capsule 500 mg PO Q12H 7 Days Qty: 14 0RF No Action rosuvastatin [Crestor] 20 mg tablet 20 mg PO DAILY 0RF escitalopram oxalate 20 mg tablet 20 mg PO DAILY Qty: 30 3RF buspirone 10 mg tablet 10 mg PO QAM Qty: 30 3RF Rx Instructions: Take one tablet by mouth every morning albuterol sulfate 90 mcg/actuation HFA aerosol inhaler 2 inh INHALATION Q6H PRN (Reason: shortness of breath or wheezing) Qty: 8 0RF Discharge Orders: Discharge ED (Routine); Ordered 02/26/22 Ordered By: Rojas Neves Referrals: Richar Otero MD [Primary Care Provider] - 7-10 days (For wound recheck and suture removal) Discharge Diet: Regular Discharge Activity: Resume usual activity Patient Instructions: Care For Your Stitches (ED), Laceration (ED) Activity Restrictions/Additional Instructions: Follow-up with your primary care doctor or come doctor in 5 to 7 days for suture removal, keep the wound clean dry and intact, take antibiotics as prescribed for infection prophylaxis please return the interim if any of your symptoms persist or worse. Coding Level of Care Code ED Registered Diet Technician for Aguilar Connell
--- NOTE | 2022-02-26 17:52 | PC.NURSE ---
1745 Spoke with broadcast supervisor regarding Urine drug screen. Was directed to collect and order under [facility] since [facility] was closed.
[2022-03-03 09:26] LABS: Amphetamines Level NEGATIVE ng/mL (<500); Barbiturates NEGATIVE ng/mL (<300); Benzodiazepines NEGATIVE ng/mL (<100); Cocaine Metabolite NEGATIVE ng/mL (<150); Marijuana Metabolite NEGATIVE ng/mL (<20); Methadone Metabolite NEGATIVE ng/mL (<100); Opiates NEGATIVE ng/mL (<100); Oxidant NEGATIVE mcg/mL (<200); Phencyclidine NEGATIVE ng/mL (<25); Urine pH 6.9 (4.5-9.0)
== END 2022-02-26 18:00 | disposition home or self-care (01) ==
PROVIDERS: Emergency Provider Emergency Medicine; PCP Family Medicine
DX: S61.217A Laceration without foreign body of left little finger without damage to nail, initial encounter (principal); W31.9XXA Contact with unspecified machinery, initial encounter; Y93.G1 Activity, food preparation and clean up; F17.220 Nicotine dependence, chewing tobacco, uncomplicated
CPT/HCPCS: 80307; 99283

== ENCOUNTER 2022-05-27 15:36 | Emergency (ER) | payer OTHER, SELFPAY ==
--- NOTE | 2022-05-27 15:39 | ECG_ITS ---
[facility] Test Date: 2022-05-27 Pat Name: Justice Roche Department: Room: Gender: Male Remote Recruiter: : 1990 Requested By: Arabella Meraz Order Number: [id number] Leonardo MD: Damon Beard M.D. Measurements Intervals [place] Rate: 89 P: 59 WI: 165 QRS: 22 QRSD: 88 T: 66 QT: 318 QTc: 387 Interpretive Statements SINUS RHYTHM Compared to ECG 02/14/2021 11:53:50 Sinus tachycardia no longer present T-wave abnormality no longer present Electronically Signed On 05-27-2022 17:16:45 CDT by Damon Beard M.D. [id number]
[2022-05-27 15:45] VITALS: BP 150/91; PULSE 99; RESP 18; TEMP 37.5; O2SAT 92; BMI 33.6
--- NOTE | 2022-05-27 16:11 | W.ED.GENADLT ---
HPI - General Adult General: Chief complaint: Chest Pain Stated complaint: passing out, SOB Time Seen by Provider: 05/27/22 16:10 History of Present Illness: Patient left prior to being seen by healthcare providers after triage. 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 Surgical History No pertinent past surgical history Family History Other CAD (coronary artery disease) Diabetes Hypertension Social History Smoking and tobacco status: current every day smoker smokeless tobacco Smokeless tobacco user: chewing tobacco Smokeless tobacco details: 0.5 can per day Quit status (tobacco): has tried quititng Number of times tried to quit tobacco: 12 Second hand smoke exposure: No Course Vital Signs: Vital signs: Vital Signs Temperature 99.5 F 05/27/22 15:45 Pulse Rate 99 05/27/22 15:45 Respiratory Rate 18 05/27/22 15:45 Blood Pressure 150/91 05/27/22 15:45 Pulse Oximetry 92 05/27/22 15:45 Oxygen Delivery Me thod 05/27/22 15:45 MDM - General Adult Medical Decision Making Patient left prior to being seen by healthcare providers after triage. Lab Data : 05/27/22 16:16 05/27/22 16:16 Discharge Plan Discharge Patient Disposition: Left Without Being Seen Condition: Stable Coding Level of Care Code ED Steam Bone Press Tender for Aguilar Connell
[2022-05-27 16:22] LABS: Basophils % 0.2 %; Eosinophils # 0.3 10^3/uL (0.0-0.8); Eosinophils % 3.4 %; Hematocrit 44.6 % (42.0-52.0); Hemoglobin 14.7 g/dL (11.7-16.6); Lymphocytes # 1.7 10^3/uL (0.8-4.8); Lymphocytes % 18.6 %; Mean Corpuscular Hemoglobin 32.2 pg (28.0-34.0); Mean Corpuscular Volume 97.6 fl (80-94); Mean Platelet Volume 10.3 fL (7.4-10.4); Monocytes % 10.9 %; Neutrophils # 6.06 10^3/uL (1.8-7.7); Neutrophils % 66.6 %; Nucleated Red Blood Cells % 0 %; Platelet Count 232 10^3/cmm (130-400); Red Blood Count 4.57 10^6/uL (4.1-5.3); Red Cell Distribution Width 12.4 % (12.1-15.1); White Blood Count 9.1 10^3/uL (4.0-10.0)
[2022-05-27 16:51] LABS: Blood Urea Nitrogen 12 mg/dL (6-20); Calcium 9.1 mg/dL (8.5-10.5); Carbon Dioxide 24 mmol/L (22-29); Chloride 103 mmol/L (98-107); Glucose 86 mg/dL (65-115); Osmolality Calculated 287 mOsm/kg (285-295); Sodium 139 mmol/L (136-145)
[2022-05-27 17:23] VITALS: BP 144/99
[2022-05-27 17:30] VITALS: BP 168/97
--- NOTE | 2022-05-27 17:53 | W.ED.CHESTPA ---
HPI - Chest Pain General: Chief Complaint: Chest Pain Stated Complaint: passing out, SOB Time Seen by Provider: 05/27/22 16:10 Source: patient Mode of arrival: ambulatory Limitations: no limitations History of Present Illness: 31-year-old male who states over the last 2 to 3 days been having cough congestion along with body aches he has had low-grade fevers he states that with his cough he is having some chest pain is sharp in nature. Denies any vomiting denies any worsening improving factors. Associated symptoms: Reports fever(s); Deny abdominal pain, dyspnea, nausea or vomiting Review of Systems Const: Reports: fever(s), chills and body aches Eyes: Denies: blurry vision or eye discomfort ENMT: Denies: throat pain or dental pain Card: Reports: chest pain Resp: Denies: dyspnea GI: Denies: abdominal pain, nausea, vomiting or diarrhea : Denies: dysuria Musc: Denies: neck pain or back pain Skin/Breast: Denies: rash Neuro: Denies: headache(s) Psych: Denies: depression Andrew/Lymph: Denies: easy bruising All/Imm: Denies: urticaria 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 Surgical History No pertinent past surgical history Family History Other CAD (coronary artery disease) Diabetes Hypertension Social History Smoking and tobacco status: current every day smoker smokeless tobacco Smokeless tobacco user: chewing tobacco Smokeless tobacco details: 0.5 can per day Quit status (tobacco): has tried quititng Number of times tried to quit tobacco: 12 Second hand smoke exposure: No Physical Exam Const: COMMON NORMALS: no acute distress, patient oriented x3 and healthy appearing HENMT: COMMON NORMALS: normocephalic and atraumatic HEAD & SCALP: normocephalic and atraumatic Eye: COMMON NORMALS: Equal, round and reactive pupils present and EOMs intact bilaterally PUPIL: Yes Equal, round and reactive pupils present Neck/C-Spine: COMMON NORMALS: full ROM and supple Chest: COMMONS NORMALS: normal inspection of the chest and normal palpation of entire chest wall Resp: COMMON NORMALS: normal respiratory effort, No retractions, No use of accessory muscles and clear to auscultation bilaterally AUSCULTATION: clear to auscultation bilaterally Cardio: COMMON NORMALS: regular rate, regular rhythm and No murmurs present (Cardio) RATE: regular rate RHYTHM: regular rhythm GI: COMMON NORMALS: Normal to inspection, nondistended, normoactive bowel sounds present, Soft to palpation, non-tender and no masses PALPATION: Yes Soft to palpation Extremity: COMMON NORMALS: normal to inspection and full ROM Neuro: COMMON NORMALS: patient oriented x3, moves all extremities and no focal motor deficits Psych: COMMON NORMALS: mental status grossly normal, Normal thought process present and cooperative THOUGHT PROCESS: Normal thought process present Skin: COMMON NORMALS: no rashes or lesions noted and no wounds GENERAL SKIN EXAM: no rashes or lesions noted Course Vital Signs: Vital signs: Vital Signs Temperature 99.5 F 05/27/22 15:45 Pulse Rate 99 05/27/22 15:45 Respiratory Rate 18 05/27/22 15:45 Blood Pressure 144/97 05/27/22 18:46 Pulse Oximetry 92 05/27/22 15:45 Oxygen Delivery Me thod 05/27/22 15:45 MDM - Chest Pain Medical Decision Making Patient presents with symptoms consistent with likely upper respiratory infection his x-ray here is normal blood work is normal EKG is normal as well. He has no signs of pulmonary embolism or pneumonia he is stable for discharge he is to follow-up with PCP and return if worsening he understands agrees to plan. Lab Data : 05/27/22 16:16 05/27/22 16:16 Laboratory Results WBC 9.1 10^3/uL (4.0-10.0) 05/27/22 16:16 RBC 4.57 10^6/uL (4.1-5.3) 05/27/22 16:16 Hgb 14.7 g/dL (11.7-16.6) 05/27/22 16:16 Hct 44.6 % (42.0-52.0) 05/27/22 16:16 MCV 97.6 fl (80-94) H 05/27/22 16:16 MCH 32.2 pg (28.0-34.0) 05/27/22 16:16 MCHC 33.0 g/dL (30.0-36.0) 05/27/22 16:16 RDW 12.4 % (12.1-15.1) 05/27/22 16:16 Plt Count 232 10^3/cmm (130-400) 05/27/22 16:16 MPV 10.3 fL (7.4-10.4) 05/27/22 16:16 Neut % (Auto) 66.6 % 05/27/22 16:16 Lymph % (Auto) 18.6 % 05/27/22 16:16 [place] % (Auto) 10.9 % 05/27/22 16:16 Eos % (Auto) 3.4 % 05/27/22 16:16 Baso % (Auto) 0.2 % 05/27/22 16:16 Neut # (Auto) 6.06 10^3/uL (1.8-7.7) 05/27/22 16:16 Lymph # (Auto) 1.7 10^3/uL (0.8-4.8) 05/27/22 16:16 [place] # (Auto) 1.0 10^3/uL (0.2-0.9) H 05/27/22 16:16 Eos # (Auto) 0.3 10^3/uL (0.0-0.8) 05/27/22 16:16 Baso # (Auto) 0.0 10^3/uL (0.0-0.1) 05/27/22 16:16 Nucleated RBC % (auto) 0 % 05/27/22 16:16 Nucleated RBCs # 0.0 /100WBC 05/27/22 16:16 Sodium 139 mmol/L (136-145) 05/27/22 16:16 Potassium 4.0 mmol/L (3.5-5.1) 05/27/22 16:16 Chloride 103 mmol/L (98-107) 05/27/22 16:16 Carbon Dioxide 24 mmol/L (22-29) 05/27/22 16:16 Anion Gap 16.0 (5-19) 05/27/22 16:16 BUN 12 mg/dL (6-20) 05/27/22 16:16 Creatinine 1.3 mg/dL (0.7-1.2) H 05/27/22 16:16 GFR Calculation 64.0 mL/min (90-130) L 05/27/22 16:16 Glucose 86 mg/dL (65-115) 05/27/22 16:16 Calculated Osmolality 287 mOsm/kg (285-295) 05/27/22 16:16 Calcium 9.1 mg/dL (8.5-10.5) 05/27/22 16:16 SARS-CoV-2 Ag (Rapid) Negative (Negative) 05/27/22 18:08 EKG Data EKG 1: I personally reviewed and interpreted this EKG as follows: EKG interpretation date: 05/27/22 EKG interpretation time: 15:58 Interpretation: nsr hr [address] or t wave abnormalities qrs 88 qtc 364 Discharge Plan Discharge Patient Disposition: Home Clinical Impression: Chest pain, Upper respiratory infection Condition: Stable Prescriptions: No Action rosuvastatin [Crestor] 20 mg tablet 20 mg PO DAILY buspirone 10 mg tablet 10 mg PO QAM Qty: 30 2RF Rx Instructions: Take one tablet by mouth every morning escitalopram oxalate 20 mg tablet 20 mg PO DAILY Qty: 30 2RF Discharge Orders: Discharge ED (Routine); Ordered 05/27/22 Ordered By: Brittaney Morris Referrals: Richar Otero MD [Primary Care Provider] - 1-3 days Discharge Diet: Advance as tolerated Discharge Activity: Resume usual activity Patient Instructions: Upper Respiratory Infection (ED) Coding Level of Care Code ED Orthodontic Technician for Chg Fwd Exam Comprehensive
[2022-05-27] MEDS: dexamethasone 10 mg/mL INJ IM (18:03)
[2022-05-27] MEDS: ketorolac 30 mg/mL INJ IM (18:03)
--- NOTE | 2022-05-27 18:37 | XRR_ITS ---
PROCEDURE INFORMATION: Exam: XR Chest Exam date and time: 05/27/2022 6:41 PM Age: 31 years old Clinical indication: Cough TECHNIQUE: Imaging protocol: Radiologic exam of the chest. Views: 1 view. COMPARISON: CR XR chest 1V portable [id number] 02/14/2021 11:29 AM FINDINGS: Lungs: Unremarkable. No consolidation. Pleural spaces: Unremarkable. No pleural effusion. No pneumothorax. Heart/Mediastinum: Unremarkable. No cardiomegaly. Bones/joints: Unremarkable. XR/XR chest 1V portable [id number] IMPRESSION: No acute findings.
[2022-05-27 18:46] VITALS: BP 144/97
[2022-05-27 18:48] LABS: SARS Covid-2 Antigen Negative (Negative)
[2022-05-27 20:01] VITALS: PULSE 91; RESP 18; O2SAT 96
[2022-05-27] MEDS: albuterol 8 gm MDI 2 PUFF INHALATION (20:02)
[2022-05-27 20:33] VITALS: PULSE 91; RESP 18; O2SAT 96
== END 2022-05-27 20:35 | disposition home or self-care (01) ==
PROVIDERS: Emergency Medicine; Emergency Provider Emergency Medicine; PCP Family Medicine
DX: R07.9 Chest pain, unspecified (principal); Z53.21 Procedure and treatment not carried out due to patient leaving prior to being seen by health care provider; F17.220 Nicotine dependence, chewing tobacco, uncomplicated; Z20.822 Contact with and (suspected) exposure to COVID-19
CPT/HCPCS: 36415; 71045; 80048; 85025; 87426; 93005; 94640; 96372; 99285; J1100; J1885; J3535

== ENCOUNTER → 2022-12-31 14:54 | Outpatient (BNVA) | payer OTHER, SELFPAY | PROVIDERS: PCP Family Medicine; Visit Provider Urology | DX: N52.9 Male erectile dysfunction, unspecified (principal); F41.1 Generalized anxiety disorder; F32.4 Major depressive disorder, single episode, in partial remission | CPT/HCPCS: 81003 ==

== ENCOUNTER 2023-11-17 20:00 | Outpatient (CLI) | payer MEDICARE, SELFPAY | END 2023-11-17 20:01 | disposition home or self-care (01) | LOC: SLEEP 11-18 05:52 | PROVIDERS: PCP Family Medicine; Visit Provider Family Medicine | DX: G47.33 Obstructive sleep apnea (adult) (pediatric) (principal) | CPT/HCPCS: 95811 ==

== ENCOUNTER 2024-01-28 19:46 | Emergency (ER) | payer MEDICARE, SELFPAY ==
[2024-01-28 20:15] VITALS: BP 146/96; PULSE 81; RESP 18; TEMP 36.6; O2SAT 93; BMI 31.2
--- NOTE | 2024-01-28 21:27 | ED_ITS ---
Documented by User: RICA Gregg 01/28/24 22:39 HPI - URI/Sore Throat General: Chief Complaint: Upper Respiratory Infection Stated Complaint: Sore Throat Time Seen by Provider: 01/28/24 19:59 Source: patient Mode of arrival: ambulatory Limitations: no limitations History of Present Illness: Patient is a 33-year-old male presenting to the emergency department complaining of sore throat for the past couple days. He states he believes he has strep throat, as he has a history of strep throat and states this feels similar. He is also noting some lymph node swelling to the submandibular region. However, he has no other symptoms to report at this time and denies any fever, breathing difficulties, cough, or lower respiratory symptoms. He does not report taking anything for symptoms today. MD elicited complaint: sore throat Onset (ago): day(s) Consistency: constant Severity: mild Able to tolerate fluids by mouth: Yes Associated symptoms: Reports no associated symptoms; Deny abdominal pain, chills, chest pain, diarrhea, ear or mastoid pain, fever(s), headache(s), nausea or vomiting Review of Systems General: Reports: 10 or more systems reviewed and unremarkable except in HPI and below Const: Denies: fever(s), chills or fatigue Eyes: Denies: change in vision ENMT: Reports: throat pain; Denies: ear or mastoid pain or nasal discharge Card: Denies: chest pain, palpitations, swelling of feet/ankles or lightheadedness Resp: Denies: dyspnea, productive cough or wheezing GI: Denies: abdominal pain, nausea, vomiting, diarrhea or constipation : Denies: flank pain, difficulty urinating, dysuria or urinary frequency Musc: Denies: neck pain, back pain or joint pain Skin/Breast: Denies: rash Neuro: Denies: headache(s), numbness in extremities or weakness in extremities PFSH ED PFSH: Medical History Moderately severe recurrent major depression Psychiatric care Erectile dysfunction Congenital stroke 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 Mother , at age 43 No problems noted. Other CAD (coronary artery disease) Diabetes Hypertension Social History Smoking and tobacco/nicotine status: current every day tobacco/nicotine user smokeless tobacco Smokeless tobacco user: chewing tobacco Smokeless tobacco details: 0.5 can per day Quit status (tobacco/nicotine): has tried quititng Number of times tried to quit tobacco: 12 Second hand smoke exposure: No Alcohol intake: current Alcohol intake frequency: holidays/special occasions only Marital status: Legally Current occupational status: employed Physical Exam Const: COMMON NORMALS: no acute distress and healthy appearing GENERAL APPEARANCE: cooperative, comfortable and well developed HENMT: COMMON NORMALS: normocephalic, atraumatic, hearing grossly normal bilaterally, external ears normal, EAC's normal, TM's normal bilaterally, Normal external nose present and Normal nasal mucous membranes and turbinates present HEAD & SCALP: normal to inspection, normocephalic and atraumatic FACE & SINUS: normal facial exam and sinuses nontender NOSE: Normal external nose present, Normal nares present, No nasal polyps present and Normal nasal mucous membranes and turbinates present EXTERNAL EAR: Yes external ears normal E XTERNAL AUDITORY CANAL: EAC's normal TYMPANIC MEMBRANE: TM's normal bilaterally MOUTH: Normal oral and palatal mucosa present THROAT: posterior oropharynx normal and tonsils normal OTHER: No pharyngeal erythema or exudates noted. Tonsils normal. Eye: COMMON NORMALS: EOMs intact bilaterally, conjunctivae normal and normal visual valle by confrontation GENERAL EYE: appearance normal, both eyes and all related structures CONJUNCTIVA: Yes conjunctivae normal Neck/C-Spine: COMMON NORMALS: full ROM, no lymphadenopathy, supple and no meningeal signs GENERAL: Yes normal visual inspection Chest: COMMONS NORMALS: normal inspection of the chest Resp: COMMON NORMALS: normal respiratory effort and clear to auscultation bilaterally EFFORT & INSPECTION: Yes able to speak in complete sentences AUSCULTATION: clear to auscultation bilaterally Cardio: COMMON NORMALS: regular rate, regular rhythm, S1 normal heart sound present and S2 normal heart sound present RATE: regular rate RHYTHM: regular rhythm HEART SOUNDS: S1 normal heart sound present, S2 normal heart sound present, no gallops, no murmurs and no rubs Extremity: COMMON NORMALS: normal to inspection, full ROM and capillary refill normal Neuro: MENINGEAL SIGNS: Yes no meningeal signs Skin: COMMON NORMALS: no rashes or lesions noted GENERAL SKIN EXAM: no rashes or lesions noted Course Vital Signs: Vital signs: Vital Signs Temperature 97.9 F 01/28/24 22:34 Pulse Rate 78 01/28/24 22:34 Respiratory Rate 16 01/28/24 22:34 Blood Pressure 144/97 01/28/24 22:34 Pulse Oximetry 94 01/28/24 22:34 Oxygen Delivery Me thod Room Air 01/28/24 20:15 MDM - URI/Sore Throat Medical Decision Making Patient seen and evaluated for sore throat for past couple days. On arrival patient's vitals normal as remained stable throughout ED course. Exam did not show any erythema or exudates on posterior oropharynx exam. Swabs for strep and flu obtained, both negative. I believe patient's symptoms due to a viral pharyngitis and informed that this is conservative therapy. Patient will also do salt water gargle rinses for added relief, and take Tylenol ibuprofen for pain. Return precautions given patient agrees with plan. Lab Data Laboratory Results Influenza Type A Ag negative (Negative) 01/28/24 21:28 Influenza Type B Ag negative (Negative) 01/28/24 21:28 Group A Strep Rapid Negative (Negative) 01/28/24 21:28 No radiology studies performed this visit Discharge Plan Discharge Patient Disposition: Home Clinical Impression: Viral pharyngitis Condition: Stable Prescriptions: No Action rosuvastatin [Crestor] 20 mg tablet 40 mg PO DAILY lidocaine HCl [Xylocaine] 10 mg/mL (1 %) solution 2 ml IM ONCE Qty: 20 0RF Ozempic 1 mg/dose (2 mg/1.5 mL) pen injector SUBCUT tadalafil [Cialis] 5 mg tablet 5 mg PO DAILY PRN doxycycline hyclate 100 mg tablet 100 mg PO BID 7 Days Qty: 14 0RF allopurinol 100 mg tablet 100 mg PO DAILY fluoxetine 20 mg capsule 20 mg PO .q am Qty: 90 0RF Rx Instructions: Take one capsule by mouth every morning Discharge Orders: Discharge ED (Routine); Ordered 01/28/24 Ordered By: Olegario Suárez Referrals: Richar Otero MD [Primary Care Provider] - Discharge Diet: Usual diet Discharge Activity: Resume usual activity Patient Instructions: Pharyngitis (ED) Activity Restrictions/Additional Instructions: Gargle salt water for added relief. Tylenol and ibuprofen for pain. Please return if you develop any new or concerning symptoms. Otherwise follow-up with primary care as needed. Coding Level of Care Code ED Geosciences Professor for Chg Fwd Documented by User: Shane Franco DO 01/29/24 14:11 HPI - URI/Sore Throat General: Chief Complaint: Upper Respiratory Infection Stated Complaint: Sore Throat Time Seen by Provider: 01/28/24 19:59 PFSH ED PFSH: Medical History Moderately severe recurrent major depression Psychiatric care Erectile dysfunction Congenital stroke 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 Mother , at age 43 No problems noted. Other CAD (coronary artery disease) Diabetes Hypertension Social History Smoking and tobacco/nicotine status: current every day tobacco/nicotine user smokeless tobacco Smokeless tobacco user: chewing tobacco Smokeless tobacco details: 0.5 can per day Quit status (tobacco/nicotine): has tried quititng Number of times tried to quit tobacco: 12 Second hand smoke exposure: No Alcohol intake: current Alcohol intake frequency: holidays/special occasions only Marital status: Legally Current occupational status: employed Course Vital Signs: Vital signs: Vital Signs Temperature 97.9 F 01/28/24 22:34 Pulse Rate 78 01/28/24 22:34 Respiratory Rate 16 01/28/24 22:34 Blood Pressure 144/97 01/28/24 22:34 Pulse Oximetry 94 01/28/24 22:34 Oxygen Delivery Me thod Room Air 01/28/24 20:15 MDM - URI/Sore Throat Medical Decision Making Patient seen and evaluated for sore throat for past couple days. On arrival patient's vitals normal as remained stable throughout ED course. Exam did not show any erythema or exudates on posterior oropharynx exam. Swabs for strep and flu obtained, both negative. I believe patient's symptoms due to a viral pharyngitis and informed that this is conservative therapy. Patient will also do salt water gargle rinses for added relief, and take Tylenol ibuprofen for pain. Return precautions given patient agrees with plan. Chart reviewed Lab Data Laboratory Results Influenza Type A Ag negative (Negative) 01/28/24 21:28 Influenza Type B Ag negative (Negative) 01/28/24 21:28 Group A Strep Rapid Negative (Negative) 01/28/24 21:28 Discharge Plan Discharge Patient Disposition: Home Clinical Impression: Viral pharyngitis Condition: Stable Prescriptions: No Action rosuvastatin [Crestor] 20 mg tablet 40 mg PO DAILY lidocaine HCl [Xylocaine] 10 mg/mL (1 %) solution 2 ml IM ONCE Qty: 20 0RF Ozempic 1 mg/dose (2 mg/1.5 mL) pen injector SUBCUT tadalafil [Cialis] 5 mg tablet 5 mg PO DAILY PRN doxycycline hyclate 100 mg tablet 100 mg PO BID 7 Days Qty: 14 0RF allopurinol 100 mg tablet 100 mg PO DAILY fluoxetine 20 mg capsule 20 mg PO .q am Qty: 90 0RF Rx Instructions: Take one capsule by mouth every morning Discharge Orders: Discharge ED (Routine); Ordered 01/28/24 Ordered By: Olegario Suárez Referrals: Richar Otero MD [Primary Care Provider] - Discharge Diet: Usual diet Discharge Activity: Resume usual activity Patient Instructions: Pharyngitis (ED) Activity Restrictions/Additional Instructions: Gargle salt water for added relief. Tylenol and ibuprofen for pain. Please return if you develop any new or concerning symptoms. Otherwise follow-up with primary care as needed. Coding Level of Care Code ED Geosciences Professor for Aguilar Connell
[2024-01-28 22:01] LABS: Rapid Strep A Test Negative (Negative)
[2024-01-28 22:06] LABS: Influenza A by IFA negative (Negative); Influenza B by IFA negative (Negative)
[2024-01-28 22:34] VITALS: BP 144/97; PULSE 78; RESP 16; TEMP 36.6; O2SAT 94
== END 2024-01-28 22:34 | disposition home or self-care (01) ==
PROVIDERS: Emergency Provider Physician Assistant; PCP Family Medicine
DX: J02.8 Acute pharyngitis due to other specified organisms (principal); F17.220 Nicotine dependence, chewing tobacco, uncomplicated
CPT/HCPCS: 87081; 87804; 87880; 99283

== ENCOUNTER 2024-02-13 13:54 | Emergency (ER) | payer MEDICARE, SELFPAY ==
[2024-02-13 14:16] VITALS: BP 138/102; PULSE 75; RESP 15; O2SAT 97
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
[2024-02-13 17:22] VITALS: RESP 14; O2SAT 97
== END 2024-02-13 17:22 | disposition home or self-care (01) ==
PROVIDERS: Emergency Provider Nurse Practitioner Family; PCP Family Medicine
DX: S39.012A Strain of muscle, fascia and tendon of lower back, initial encounter (principal); Z79.85 Long-term (current) use of injectable non-insulin antidiabetic drugs; F17.220 Nicotine dependence, chewing tobacco, uncomplicated; V89.2XXA Person injured in unspecified motor-vehicle accident, traffic, initial encounter
CPT/HCPCS: 72040; 72072; 72100; 99284